=== PATIENT | female | born 1945 | race American Indian/Alaskan Native ===

== ENCOUNTER 2022-10-31 18:55 | Inpatient (IN) ==
[2022-10-31] MEDS ORDERED: 0.9 % SODIUM CHLORIDE 1,000 ML IV ONE ×2 (19:14→19:40)
[2022-10-31] MEDS ORDERED: ONDANSETRON 4 MG/2 ML VIAL IV ONE (19:14)
[2022-10-31 19:23] LABS: POC Calcium, Ionized 1.16 (1.16-1.32); POC Potassium 4.3 (3.3-5.1)
--- NOTE | 2022-10-31 20:04 | Emergency Department Note ---
Nausea/Vomiting/Diarrhea HPI General Chief complaint: Nausea/Vomiting/Diarrhea Stated complaint: N/V several days Time Seen by Provider: 10/31/22 19:09 Source: patient Mode of arrival: ambulatory Limitations: no limitations History of Present Illness HPI Narrative: Narrative: Patient presents to the ED with complaints of nausea vomiting diarrhea x7 days. She states that nausea and vomiting for total 7 days and that the diarrhea started about 2 days ago. Patient states that she cannot keep anything down. She also states that her stools look very dark and she thinks that she is bleeding. She does take Eliquis. She does have a history of cancer and is currently being treated for it. She reports she feels very weak. She denies hematemesis, bright red blood per rectum, abdominal pain, abdominal trauma, cardiac chest pain, heart palpitation, shortness of breath. Patient denies any other alleviating or aggravating factors. Related Data Home Medications Medication Instructions Recorded Confirmed cyanocobalamin (vitamin B-12) 1,000 mcg PO QDAY 12/27/17 11/01/22 1,000 mcg tablet apixaban 5 mg tablet (Eliquis) 5 mg PO BID 04/23/22 11/01/22 ascorbic acid (vitamin C) 500 mg 500 mg PO QDAY 04/23/22 11/01/22 tablet chlorthalidone 25 mg tablet 25 mg PO QDAY 04/23/22 11/01/22 levothyroxine 125 mcg tablet 125 mcg PO QDAY 07/24/22 11/01/22 lenvatinib 12 mg/day (4 mg x 3) See Rx Instructions .Route .COMPLEX 10/31/22 11/01/22 capsule (Lenvima) prochlorperazine maleate 10 mg 10 mg PO Q6 10/31/22 11/01/22 tablet Previous Rx's Medication Instructions Recorded lisinopril 5 mg tablet 5 mg PO QDAY HTN #30 tabs 04/23/22 Allergies Allergy/AdvReac Type Severity Reaction Status Date / Time No Known Drug Allergies Allergy Verified 07/24/22 13:03 Review of Systems ROS ROS Narrative: Narrative: All systems ED: reviewed and negative except as stated. PFSH Narrative Patient History Narrative: Narrative: Medical/Surgical/Family History All Active Problems (Updated 11/01/22 @ 05:38 by Devin Salazar DO) Periumbilical hernia (Acute) Acute renal failure superimposed on stage 3a chronic kidney disease (Acute) Hypertensive disorder (Chronic) Malignant tumor of thyroid gland (Chronic) Disorder of skeletal system (Chronic) Smoker (Chronic) Ventral hernia (Chronic) Vitamin B12 deficiency (non anemic) (Chronic) Secondary malignant neoplasm of lung (Chronic) Hypercalcemia (Chronic) Upper respiratory infection (Chronic) Diverticulitis (Chronic) Osteopenia (Chronic) Increased frequency of urination (Chronic) Knee pain (Chronic) Gastroenteritis (Chronic) Microscopic hematuria (Chronic) Snoring (Chronic) Bursitis of right hip (Chronic) Colon polyp (Chronic) Lung nodule (Chronic) Chronic kidney disease, stage 3 (Chronic) Chronic kidney disease (CKD) stage G3a/A1, moderately decreased glomerular filtration rate (GFR) between 45-59 mL/min/1.73 square meter and albuminuria creatinine ratio less than 30 mg/g (Acute) A-fib (Acute) Low vitamin D level (Acute) FABIÁN (acute kidney injury) (Acute) Acute dehydration (Acute) Nausea vomiting and diarrhea (Acute) Medical History Bursitis of right hip Chronic kidney disease, stage 3 Colon polyp Disorder of skeletal system Diverticulitis Gastroenteritis Hypercalcemia Hypertensive disorder Will probably require 3 drugs for control, no evidence of secondary causes of hypertension Increased frequency of urination Knee pain Lung nodule Malignant tumor of thyroid gland Microscopic hematuria Osteopenia Secondary malignant neoplasm of lung Smoker Snoring Upper respiratory infection Ventral hernia Vitamin B12 deficiency (non anemic) Surgical History History of carpal tunnel release (12/12/99) History of colectomy (10/08/11) History of colonoscopy (04/23/16) History of hernia repair History of hysterectomy (12/11/94) History of sigmoidoscopy (04/22/16) History of thyroidectomy Family History Mother Heart disease Myocardial infarction Father Kidney disease Renal failure syndrome Sister Diabetes Brother Cancer Arthritis Other Family history of breast cancer Social History Smoking Status: Former smoker Alcohol Intake Frequency: does not drink Exam Narrative Narrative: Narrative: General Limitations: no limitations General appearance: Present other (Chronically ill-appearing); Absent in distress Eye Eye: Present PERRL and EOMI ENT ENT: Present normal oropharynx and mucous membranes dry Neck Neck: Present normal inspection; Absent meningismus Chest Chest: Present normal inspection; Absent tenderness Respiratory Respiratory: Present normal lung sounds bilaterally; Absent respiratory distress Cardiovascular Cardiovascular: Present tachycardia and irregular rhythm Adbominal Abdominal: Present soft and normal bowel sounds; Absent tenderness Rectal Rectal: Present heme (+) stool Extremities Extremities: Present normal capillary refill Back Back: Absent CVA tenderness (R) or CVA tenderness (L) Neurological Neurological: Present alert and oriented X3 Psychiatric Psychiatric: Present normal affect and normal mood Skin Skin: Present warm (WNL) and intact Course Course Course Narrative: Patient was evaluated for generalized weakness. When patient arrived she was hypotensive with systolic blood pressure less than 90. Labs were obtained and showed normal white cell count with no leukocytosis. Patient's pH was low and she was slightly acidotic and her lactic acid was greater than 6. Patient compromise renal function with a elevated BUN and a creatinine of 8. Her last creatinine was 1.0 back in July of this year. Patient was aggressively hydrated with IV fluids. She was given IV Zofran for her nausea and vomiting. After treatment patient did not vomit here in the ED. she did provide us a stool sample which did test positive for blood. The stool was dark. There was concern that patient could probably have a GI bleed so she was given some IV Protonix. Her stool was negative for C. difficile. Lab work showed that patient's hemoglobin was within normal limits and was actually better than her last hemoglobin level that was checked a few months ago. When patient arrived she was the initially tachycardic and EKG showed A-fib which patient is known to have. After IV fluids her heart rate improved. Her blood pressure also improved after IV hydration with systolic blood pressure greater than 100. After patient's fluids were administered we did repeat lactic acid level which showed improvement. Her renal function also improved as her creatinine came down to 6.9. Case was discussed with convalescent sitter who states he is willing to consult on the patient if she was admitted to the hospitalist service as he thinks that we should see how she responds to IV fluid hydration. He did note that her potassium level is within normal limits so she is not in the immediate need of dialysis at this time. He did request that a renal ultrasound be obtained which has been ordered. Case discussed with hospitalist who has agreed to admit pt. Reevaluation(s) Reevaluation #1: pt remains stable. no new complaints at this time Time: 20:19 Consultations Consultation #1: Case discussed with convalescent sitter, Dr. Lorenz, who states is reasonable to see if we can admit to the hospitalist service and try to resuscitate patient with fl uids. He requests renal ultrasound. Time: 21:46 Consultation #2: Case discussed with hospitalist, Dr. Small, who states these agreeable to admit the patient if surgery it would be willing to perform a EGD/colonoscopy if patient's condition warranted. Time: 22:10 Consultation #3: Case discussed with general surgeon, Dr. Shane, who states that he would be willing to scope the patient if hemoglobin levels change. Time: 22:20 Vital Signs Vital signs: Vital Signs Temperature 96.2 F L 10/31/22 19:01 Pulse Rate 122 H 10/31/22 19:01 Respiratory Rate 18 10/31/22 19:01 Blood Pressure 72/58 10/31/22 19:01 Pulse Oximetry (%) 97 10/31/22 19:01 Oxygen Delivery Method Room Air 10/31/22 19:01 Temperature 96.2 F L 10/31/22 19:01 Pulse Rate 96 H 11/01/22 01:35 Respiratory Rate 20 11/01/22 01:35 Blood Pressure 106/62 11/01/22 01:35 Pulse Oximetry (%) 97 11/01/22 01:43 Oxygen Delivery Method Nasal Cannula 11/01/22 01:43 Oxygen Flow Rate (L/min) 2 11/01/22 01:[address] [facility] MDM Narrative Medical decision making narrative: Narrative: Differential Diagnosis Differential Diagnosis: GI bleed, sepsis, dehydration Medical Records Medical records reviewed: Yes I reviewed the patient's medical records. Lab Data Lab results reviewed: Yes I reviewed the patient's lab results. 10/31/22 19:26 10/31/22 22:43 Labs: Lab Results 10/31/22 10/31/22 10/31/22 Range/Units 19:17 19:26 19:26 WBC 8.7 (4.5-11.0) K/mcL RBC 7.02 H (3.59-5.38) M/mcL Hgb 13.9 (11.2-15.7) g/dL Hct 51.1 H (34.1-44.9) % POC Hct 52.0 H (36-48) MCV 72.8 L (80.0-100.0) fL MCH 19.8 L (26.0-34.0) pg MCHC 27.2 L (31.0-36.0) g/dL RDW 23.9 H (11.5-14.5) % Plt Count 237 (140-440) K/mcL MPV ---- (8.8-12.5) fL Immature Gran % (Auto) 0.2 (0.0-0.5) % Neut % (Auto) 72.7 (38.0-78.0) % Lymph % (Auto) 11.6 L (15.5-49.0) % [place] % (Auto) 15.2 H (1.0-12.0) % Eos % (Auto) 0 (0.0-7.0) % Baso % (Auto) 0.3 (0.0-2.0) % Lymph # (Auto) 1.01 L (1.50-4.80) K/mcL [place] # (Auto) 1.32 H (0.10-0.90) K/mcL Eos # (Auto) 0 (0.00-0.70) K/mcL Baso # (Auto) 0.03 (0.00-0.30) K/mcL Immature Gran # 0.02 (0.00-0.05) K/mcl Absolute Neutrophils 6.33 (1.80-8.00) K/mcL POC VBG pH (7.32-7.42) POC VBG pCO2 at Temp (41-51) POC VBG pO2 (25-40) POC VBG HCO3 (24-28) POC VBG Total CO2 (25-29) POC Venous O2 Sat (40-70) POC VBG Base Excess (-2-2) VBG Lactic Acid (0.5-2) POC Sodium 139 (133-145) Sodium (133-145) mmol/L POC Potassium 4.3 (3.3-5.1) Potassium (3.3-5.1) mmol/L POC Chloride 102 (96-108) Chloride (96-108) mmol/L Carbon Dioxide (22-30) mmol/L POC Total CO2 19.0 L (22-30) Anion Gap (8.0-16.0) POC BUN 65 H (6-20) BUN (8-23) mg/dL Creatinine (0.6-1.1) mg/dL POC Creatinine 8.0 H* (0.6-1.2) GFR Calculation Glucose (70-105) mg/dL POC Glucose 148 H (70-105) Calcium (8.6-10.4) mg/dL POC WB Ioniz Calcium 1.16 (1.16-1.32) Phosphorus (2.5-4.5) mg/dL Total Bilirubin 1.0 (0.1-1.0) mg/dL Direct Bilirubin 0.3 H (<0.3) mg/dL AST 16 (<32) U/L ALT 13 (<40) U/L Alkaline Phosphatase 91 (39-117) U/L Total Protein 7.9 (5.9-8.4) gm/dL Albumin 4.4 (3.2-5.2) gm/dL Globulin 3.5 (2.2-3.7) gm/dL Amylase < 3 L (28-100) U/L Lipase < 3 L (7-60) U/L 10/31/22 10/31/22 10/31/22 Range/Units 19:48 21:33 21:37 WBC (4.5-11.0) K/mcL RBC (3.59-5.38) M/mcL Hgb (11.2-15.7) g/dL Hct (34.1-44.9) % POC Hct 36.0 (36-48) MCV (80.0-100.0) fL MCH (26.0-34.0) pg MCHC (31.0-36.0) g/dL RDW (11.5-14.5) % Plt Count (140-440) K/mcL MPV (8.8-12.5) fL Immature Gran % (Auto) (0.0-0.5) % Neut % (Auto) (38.0-78.0) % Lymph % (Auto) (15.5-49.0) % [place] % (Auto) (1.0-12.0) % Eos % (Auto) (0.0-7.0) % Baso % (Auto) (0.0-2.0) % Lymph # (Auto) (1.50-4.80) K/mcL [place] # (Auto) (0.10-0.90) K/mcL Eos # (Auto) (0.00-0.70) K/mcL Baso # (Auto) (0.00-0.30) K/mcL Immature Gran # (0.00-0.05) K/mcl Absolute Neutrophils (1.80-8.00) K/mcL POC VBG pH 7.30 L 7.24 L (7.32-7.42) POC VBG pCO2 at Temp 38.0 L 49.9 (41-51) POC VBG pO2 31 25 (25-40) POC VBG HCO3 18.6 L 21.4 L (24-28) POC VBG Total CO2 20.0 L 23.0 L (25-29) POC Venous O2 Sat 53.0 34.0 L (40-70) POC VBG Base Excess -8.0 L -6.0 L (-2-2) VBG Lactic Acid 6.2 H* 2.2 H (0.5-2) POC Sodium 142 (133-145) Sodium (133-145) mmol/L POC Potassium 4.2 (3.3-5.1) Potassium (3.3-5.1) mmol/L POC Chloride 108 (96-108) Chloride (96-108) mmol/L Carbon Dioxide (22-30) mmol/L POC Total CO2 21.0 L (22-30) Anion Gap (8.0-16.0) POC BUN 63 H (6-20) BUN (8-23) mg/dL Creatinine (0.6-1.1) mg/dL POC Creatinine 6.9 H* (0.6-1.2) GFR Calculation Glucose (70-105) mg/dL POC Glucose 66 L (70-105) Calcium (8.6-10.4) mg/dL POC WB Ioniz Calcium 1.05 L (1.16-1.32) Phosphorus (2.5-4.5) mg/dL Total Bilirubin (0.1-1.0) mg/dL Direct Bilirubin (<0.3) mg/dL AST (<32) U/L ALT (<40) U/L Alkaline Phosphatase (39-117) U/L Total Protein (5.9-8.4) gm/dL Albumin (3.2-5.2) gm/dL Globulin (2.2-3.7) gm/dL Amylase (28-100) U/L Lipase (7-60) U/L 10/31/22 Range/Units 22:43 WBC (4.5-11.0) K/mcL RBC (3.59-5.38) M/mcL Hgb (11.2-15.7) g/dL Hct (34.1-44.9) % POC Hct (36-48) MCV (80.0-100.0) fL MCH (26.0-34.0) pg MCHC (31.0-36.0) g/dL RDW (11.5-14.5) % Plt Count (140-440) K/mcL MPV (8.8-12.5) fL Immature Gran % (Auto) (0.0-0.5) % Neut % (Auto) (38.0-78.0) % Lymph % (Auto) (15.5-49.0) % [place] % (Auto) (1.0-12.0) % Eos % (Auto) (0.0-7.0) % Baso % (Auto) (0.0-2.0) % Lymph # (Auto) (1.50-4.80) K/mcL [place] # (Auto) (0.10-0.90) K/mcL Eos # (Auto) (0.00-0.70) K/mcL Baso # (Auto) (0.00-0.30) K/mcL Immature Gran # (0.00-0.05) K/mcl Absolute Neutrophils (1.80-8.00) K/mcL POC VBG pH (7.32-7.42) POC VBG pCO2 at Temp (41-51) POC VBG pO2 (25-40) POC VBG HCO3 (24-28) POC VBG Total CO2 (25-29) POC Venous O2 Sat (40-70) POC VBG Base Excess (-2-2) VBG Lactic Acid (0.5-2) POC Sodium (133-145) Sodium 143 (133-145) mmol/L POC Potassium (3.3-5.1) Potassium 4.3 (3.3-5.1) mmol/L POC Chloride (96-108) Chloride 104 (96-108) mmol/L Carbon Dioxide 24 (22-30) mmol/L POC Total CO2 (22-30) Anion Gap 15.0 (8.0-16.0) POC BUN (6-20) BUN 64 H (8-23) mg/dL Creatinine 5.1 H* (0.6-1.1) mg/dL POC Creatinine (0.6-1.2) GFR Calculation 7 Glucose 91 (70-105) mg/dL POC Glucose (70-105) Calcium 8.4 L (8.6-10.4) mg/dL POC WB Ioniz Calcium (1.16-1.32) Phosphorus 7.5 H* (2.5-4.5) mg/dL Total Bilirubin (0.1-1.0) mg/dL Direct Bilirubin (<0.3) mg/dL AST (<32) U/L ALT (<40) U/L Alkaline Phosphatase (39-117) U/L Total Protein (5.9-8.4) gm/dL Albumin 3.4 (3.2-5.2) gm/dL Globulin (2.2-3.7) gm/dL Amylase (28-100) U/L Lipase (7-60) U/L Radiology Data Radiology results reviewed: Yes I reviewed the patient's radiology results. Radiology results narrative: Renal ultrasound obtained bilaterally with unremarkable findings CT abdomen pelvis obtained with image reviewed myself which revealed a periumbilical hernia with no signs of a small bowel obstruction or incarcerated bowel EKG Data EKG #1: EKG attestation: Yes I reviewed and interpreted this EKG. Rate: tachycardia Rhythm: A.Fib [place]/QRS: normal Heart block present: None ST segment elevation in: None ST segment depression in: None QTc: normal QRS morphology: Present normal Interpretation: no acute changes Core Measures AMI Core Measures Followed: Yes Discharge Plan Patient/Caregiver Discharge Instructions Pt seen by CERTIFIED COURT/MEDICAL INTERPRETER/PA only: No Clinical Impression: FABIÁN (acute kidney injury), Acute dehydration, Nausea vomiting and diarrhea, Periumbilical hernia Patient Disposition: Xfer As Outpt/Obs ([facility]) Condition: Fair Discharge Date/Time: 11/01/22 01:43
[2022-10-31 20:06] LABS: Basophils # (Auto) 0.03 K/mcL (0.00-0.30); Basophils % (Auto) 0.3 % (0.0-2.0); Eosinophils # (Auto) 0 K/mcL (0.00-0.70); Eosinophils % (Auto) 0 % (0.0-7.0); Hematocrit 51.1 % (34.1-44.9); Hemoglobin 13.9 g/dL (11.2-15.7); Lymphocytes # (Auto) 1.01 K/mcL (1.50-4.80); Lymphocytes % (Auto) 11.6 % (15.5-49.0); Mean Cell Volume 72.8 fL (80.0-100.0); Mean Corpuscular HGB Conc 27.2 g/dL (31.0-36.0); Monocytes # (Auto) 1.32 K/mcL (0.10-0.90); Monocytes % (Auto) 15.2 % (1.0-12.0); Neutrophils % (Auto) 72.7 % (38.0-78.0); Platelet Count 237 K/mcL (140-440); RBC 7.02 M/mcL (3.59-5.38); Red Cell Distribution Width 23.9 % (11.5-14.5); WBC 8.7 K/mcL (4.5-11.0)
[2022-10-31] MEDS ORDERED: PANTOPRAZOLE 40 MG VIAL IV ONE (20:17)
[2022-10-31 20:26] LABS: Amylase < 3 U/L (28-100)
[2022-10-31 20:50] LABS: ALT/SGPT 13 U/L (<40); AST/SGOT 16 U/L (<32); Albumin 4.4 gm/dL (3.2-5.2); Alkaline Phosphatase 91 U/L (39-117); Bilirubin,Direct 0.3 mg/dL (<0.3); Globulin 3.5 gm/dL (2.2-3.7)
[2022-10-31] MEDS ORDERED: 0.9 % SODIUM CHLORIDE 250 ML IV ONE (21:10)
[2022-10-31 21:40] LABS: POC Calcium, Ionized 1.05 (1.16-1.32); POC Creatinine 6.9 (0.6-1.2); POC Potassium 4.2 (3.3-5.1)
[2022-10-31] MEDS ORDERED: SODIUM BICARBONATE 50 MEQ/50 ML VIAL IV ONE (21:45)
[2022-10-31] MEDS ORDERED: 0.9 % SODIUM CHLORIDE 1,000 ML IV SCH ×2 (22:00→23:45)
--- NOTE | 2022-10-31 22:27 | Nephrology Consult Note ---
HPI Date of Consult Consult Date: 10/31/22 Requesting physician: Jhon Caldwell Primary Care Provider: RYLAN Jackson Consult Narrative Chief complaint: Nausea Reason for consult: Acute kidney injury History of present illness: Elana Monte is a 77-year-old female with hypertension, presented to ED for nausea and vomiting for 7 days and diarrhea for 2 days. In ED, her POC creatinine was 8.0. She was given 2 L IVF, but had no urine output. She was recently diagnosed with thyroid cancer and prescribed lenvatinib. Nephrology consultation was requested for acute kidney injury. cc:: CC: Constitutional Constitutional: Present fatigue and weakness EENT Nose, mouth and throat: Absent nasal congestion or sore throat Cardiovascular Cardiovascular: Absent chest pain or leg edema Respiratory Respiratory: Absent dyspnea or wheezing Gastrointestinal Gastrointestinal: Present diarrhea, nausea and vomiting Genitourinary Genitourinary: Absent dysuria or hematuria Musculoskeletal Musculoskeletal: Absent joint swelling Integumentary Integumentary: Absent rash or wounds Neurological Neurological: Present weakness; Absent confusion Psychiatric Psychiatric: Absent anxiety or panic attacks Hematologic/Lymphatic Hematologic/Lymphatic: Present easy bruising Allergic/Immunologic Allergic/Immunologic: Absent tongue swelling or uticaria PFSH PFSH All Active Problems (Updated 10/31/22 @ 22:26 by Minna Thompson MD) Acute renal failure superimposed on stage 3a chronic kidney disease (Acute) Hypertensive disorder (Chronic) Malignant tumor of thyroid gland (Chronic) Disorder of skeletal system (Chronic) Smoker (Chronic) Ventral hernia (Chronic) Vitamin B12 deficiency (non anemic) (Chronic) Secondary malignant neoplasm of lung (Chronic) Hypercalcemia (Chronic) Upper respiratory infection (Chronic) Diverticulitis (Chronic) Osteopenia (Chronic) Increased frequency of urination (Chronic) Knee pain (Chronic) Gastroenteritis (Chronic) Microscopic hematuria (Chronic) Snoring (Chronic) Bursitis of right hip (Chronic) Colon polyp (Chronic) Lung nodule (Chronic) Chronic kidney disease, stage 3 (Chronic) Chronic kidney disease (CKD) stage G3a/A1, moderately decreased glomerular f iltration rate (GFR) between 45-59 mL/min/1.73 square meter and albuminuria creatinine ratio less than 30 mg/g (Acute) A-fib (Acute) Low vitamin D level (Acute) FABIÁN (acute kidney injury) (Acute) Acute dehydration (Acute) Nausea vomiting and diarrhea (Acute) Medical History Bursitis of right hip Chronic kidney disease, stage 3 Colon polyp Disorder of skeletal system Diverticulitis Gastroenteritis Hypercalcemia Hypertensive disorder Will probably require 3 drugs for control, no evidence of secondary causes of hypertension Increased frequency of urination Knee pain Lung nodule Malignant tumor of thyroid gland Microscopic hematuria Osteopenia Secondary malignant neoplasm of lung Smoker Snoring Upper respiratory infection Ventral hernia Vitamin B12 deficiency (non anemic) Surgical History History of carpal tunnel release (12/12/99) History of colectomy (10/08/11) History of colonoscopy (04/23/16) History of hernia repair History of hysterectomy (12/11/94) History of sigmoidoscopy (04/22/16) History of thyroidectomy Family History Mother Heart disease Myocardial infarction Father Kidney disease Renal failure syndrome Sister Diabetes Brother Cancer Arthritis Other Family history of breast cancer Social History (Updated 04/13/22 @ 11:03 by Joan Christianson) marital status: single smoking status: Former smoker alcohol intake frequency: does not drink MEDS/ALLERGIES Home Medications and Allergies Home Medications Medication Instructions Recorded Confirmed Type cyanocobalamin (vitamin B-12) 1,000 mcg PO QDAY 12/27/17 10/31/22 History 1,000 mcg tablet apixaban 5 mg tablet (Eliquis) 5 mg PO BID 04/23/22 10/31/22 History ascorbic acid (vitamin C) 500 mg 500 mg PO QDAY 04/23/22 10/31/22 History tablet chlorthalidone 25 mg tablet 25 mg PO QDAY 04/23/22 10/31/22 History lisinopril 5 mg tablet 5 mg PO QDAY HTN #30 tabs 04/23/22 10/31/22 Rx levothyroxine 125 mcg tablet 125 mcg PO QDAY 07/24/22 10/31/22 History lenvatinib 12 mg/day (4 mg x 3) See Rx Instructions .Route .COMPLEX 10/31/22 10/31/22 History capsule (Lenvima) prochlorperazine maleate 10 mg 10 mg PO Q6 10/31/22 10/31/22 History tablet Allergies Allergy/AdvReac Type Severity Reaction Status Date / Time No Known Drug Allergies Allergy Verified 07/24/22 13:03 Physical Examination Vital Signs Vital signs: Temp Pulse Resp BP Pulse Ox O2 Del Method O2 Flow Rate 96.2 F L 93 H 18 112/54 99 Nasal Cannula 2 10/31/22 19:01 10/31/22 21:32 10/31/22 22:01 10/31/22 22:01 10/31/22 21:32 10/31/22 22:01 10/31/22 22:01 General Appearance General appearance: chronically ill and fatigue EENT EENT: mucous membranes dry Neck Neck: no JVD Respiratory Respiratory: clear Cardiovascular Cardiology: no edema Gastrointestinal Gastrointestinal: no tenderness Integumentary Integumentary: warm and dry Neurologic Neurologic: no focal deficit and alert and oriented x3 Psychiatric Psychiatric: mood/affect appropriate and cooperative Results Lab Results 10/31/22 19:26 10/31/22 22:43 A/P Assessment and plan (1) Acute renal failure superimposed on stage 3a chronic kidney disease: Assessment and plan: Elana Monte is a 77-year-old female with hypertension, presented to ED for nausea and vomiting for 7 days and diarrhea for 2 days. In ED, her POC creatinine was 8.0. She was given 2 L IVF, but had no urine output. She was recently diagnosed with thyroid cancer and prescribed lenvatinib. Nephrology consultation was requested for acute kidney injury. Acute kidney injury, likely acute tubular necrosis associated with dehydration and lenvatinib on chronic kidney disease stage 3a with initial metabolic acidosis, present on arrival. There is no recent history of IV contrast administration or NSAID use. Intravascular volume depletion likely per urine and adequate IV fluid resuscitation started. Work up: Renal US pending. Progress: Serum creatinine increased from 1.0 on 07/18/22 to 8.0 on 10/31/22. Baseline serum creatinine: 1.0 (eGFR 54) on 07/18/22. Urine output: 0 ml reported in the past 24 hours. Metabolic acidosis. No uremic symptoms. Recommendations/Plan: No urgent acute hemodialysis need. Avoid NSAIDs, nephrotoxic medications and IV contrast. Monitor BMP and urine output. Status: Acute Time Spent With Patient Time: Total time spent is greater than 50% in coordination of care (as documented) at patient's floor/unit and/or counseling patient:
[2022-10-31 23:50] LABS: Albumin 3.4 gm/dL (3.2-5.2); Blood Urea Nitrogen 64 mg/dL (8-23); Calcium 8.4 mg/dL (8.6-10.4); Carbon Dioxide 24 mmol/L (22-30); Chloride 104 mmol/L (96-108); Glomerular Filtration Rate 7; Glucose 91 mg/dL (70-105); Phosphorous 7.5 mg/dL (2.5-4.5)
[2022-11-01] MEDS: PANTOPRAZOLE 80 MG in 0.9 % SODIUM CHLORIDE 100 ML IV SCH ×3 (00:11→20:03)
[2022-11-01] MEDS ORDERED: morphine 2 MG/ML VIAL IV PRN (01:21)
[2022-11-01] MEDS ORDERED: NALOXONE HCL 0.4 MG/ML VIAL IV PRN (01:21)
[2022-11-01] MEDS ORDERED: ONDANSETRON 4 MG/2 ML VIAL IV PRN (01:21)
[2022-11-01] MEDS: 0.9 % SODIUM CHLORIDE 1,000 ML IV SCH ×4 (05:36→20:38)
[2022-11-01 06:34] LABS: Basophils # (Auto) 0.02 K/mcL (0.00-0.30); Basophils % (Auto) 0.2 % (0.0-2.0); Eosinophils # (Auto) 0.01 K/mcL (0.00-0.70); Eosinophils % (Auto) 0.1 % (0.0-7.0); Hematocrit 41.8 % (34.1-44.9); Lymphocytes # (Auto) 0.64 K/mcL (1.50-4.80); Lymphocytes % (Auto) 6.7 % (15.5-49.0); Mean Cell Volume 75.3 fL (80.0-100.0); Mean Corpuscular HGB Conc 26.3 g/dL (31.0-36.0); Mean Platelet Volume 10.4 fL (8.8-12.5); Monocytes % (Auto) 16.8 % (1.0-12.0); Platelet Count 161 K/mcL (140-440); RBC 5.55 M/mcL (3.59-5.38); Red Cell Distribution Width 23.2 % (11.5-14.5); WBC 9.5 K/mcL (4.5-11.0)
[2022-11-01 06:37] LABS: ALT/SGPT 9 U/L (<40); AST/SGOT 13 U/L (<32); Albumin/Globulin Ratio 1.2 (1.0-2.3); Alkaline Phosphatase 65 U/L (39-117); Bilirubin,Total 0.6 mg/dL (0.1-1.0); Blood Urea Nitrogen 63 mg/dL (8-23); Calcium 8.1 mg/dL (8.6-10.4); Carbon Dioxide 19 mmol/L (22-30); Chloride 108 mmol/L (96-108); Globulin 2.6 gm/dL (2.2-3.7); Glomerular Filtration Rate 7; Glucose 80 mg/dL (70-105)
--- NOTE | 2022-11-01 07:11 | Nephrology Progress Note ---
SUBJECTIVE Subjective Patient information: Note initiated : 11/01/22 at 7:10 am Patient: Elana Monte a 77 y/o F admitted on 11/01/22 for N/V several days. Chief Complaint: Nausea Pertinent ROS: Nausea Weakness Constitutional Vitals: Vital Signs Temp Pulse Resp BP Pulse Ox O2 Del Method O2 Flow Rate 97.3 F 102 H 21 105/54 98 Nasal Cannula 2 11/01/22 04:01 11/01/22 06:01 11/01/22 06:01 11/01/22 06:01 11/01/22 06:01 11/01/22 06:01 11/01/22 06:01 Period Temp Pulse Resp BP Sys/Lucas Pulse Ox O2 Del Method O2 Flow Rate Last 24 Hr 96.2 F-97.3 F 89-126 16-25 72-126/48-87 90-100 Nasal Cannula- Room Air 2-2 Intake and Output 10/31/22 11/01/22 11/01/22 19:59 03:59 11:59 Intake Total 2658 692 Balance 2658 692 Weight 162 lb 157 lb Intake & Output: Intake & Output 10/31/22 11/01/22 11/01/22 19:59 03:59 11:59 Intake Total 2658 692 Balance 2658 692 Weight 162 lb 157 lb Intake: IV 2658 692 Sodium Chloride 0.9% 1,000 ml @ 2308 692 150 mls/hr IV .[id number] [facility] Rx#: [id number] Sodium Chloride 0.9% 250 ml @ 350 Wide Open IV B[facility] Rx#: [id number] Other: Stool Color Black Stool Consistency Liquid Watery Loose Head Head exam: Present atraumatic and normal inspection Eye Eye exam: Present normal appearance ENT ENT exam: Present mucous membranes moist, normal exam and normal external ear exam Neck Neck exam: Present normal inspection Respiratory Respiratory exam: Present normal respiratory exam Cardiovascular Cardiovascular exam: Present normal rate and rhythm GI/Abdominal GI/Abdominal exam: Present normal bowel sounds Back Exam Back exam: Present normal inspection Neurological Exam Neurological exam: Present alert and oriented X3 Skin Skin exam: Present intact and warm A/P Assessment and plan (1) Acute renal failure superimposed on stage 3a chronic kidney disease: Assessment and plan: Elana Monte is a 77-year-old female with hypertension, presented to ED for nausea and vomiting for 7 days and diarrhea for 2 days. In ED, her POC creatinine was 8.0. She was given 2 L IVF, but had no urine output. She was recently diagnosed with thyroid cancer and prescribed lenvatinib. Nephrology consultation was requested for acute kidney injury. Acute kidney injury, likely acute tubular necrosis associated with dehydration and lenvatinib on chronic kidney disease stage 3a with initial metabolic acidosis, present on arrival. There is no recent history of IV contrast administration or NSAID use. Intravascular volume depletion likely per urine and adequate IV fluid resuscitation started. Work up: Renal US pending. Progress: Serum creatinine decreased from 8.0 on 10/31/22 to 5.2 on 11/01/22, but no urine output indicating dilution so far. Baseline serum creatinine: 1.0 (eGFR 54) on 07/18/22. Urine output: 0 ml reported in the past 24 hours. Metabolic acidosis. No uremic symptoms. Recommendations/Plan: No urgent acute hemodialysis need. Avoid NSAIDs, nephrotoxic medications and IV contrast. Monitor BMP and urine output. Status: Acute Time Spent With Patient Time: Total time spent is greater than 50% in coordination of care (as documented) at patient's floor/unit and/or counseling patient:
--- NOTE | 2022-11-01 07:48 | XRay Report ---
HISTORY: Tachycardia, lung and throat cancer, smoker FINDINGS: There is a miliary pattern of ill-defined smudgy nodular densities throughout both lungs, predominantly involving the lung bases. This has improved significantly since prior x-ray done on 06/27/22. No consolidating infiltrate has developed. There is no dominant mass. No pleural effusion is present. No adenopathy is detected. The heart size is normal. There is no congestive heart failure. IMPRESSION: Widespread pulmonary metastasis which have improved since 06/27/22 Interpreted and Authenticated by: Farzad Manzano 11/01/22
--- NOTE | 2022-11-01 07:51 | Ultrasound Report ---
History: Acute kidney injury FINDINGS: The right kidney measures 3.9 x 5.1 x 8.9 cm and the left measures 4.2 x 6.1 x 11.5 cm. Subtle increased echogenicity is present in the renal parenchyma bilaterally suggesting chronic medical renal disease. There are two cysts in the right kidney. The largest is in the upper pole and measures 4.3 x 4.5 x 7.3 cm. Laterally in the middle third there is a 7 x 8 x 11 mm cyst. Laterally in the upper third of the left kidney there is a 1.1 x 1.1 x 1.5 cm cyst. No solid mass is present in either kidney. There is no kidney stone or hydronephrosis. Doppler showed no flow of urine through either ureter into the bladder. The bladder is nearly empty and contained only 17 cc of urine. IMPRESSION: Markedly diminished urine output consistent with acute kidney injury. Renal cysts. No evidence of urinary tract obstruction Interpreted and Authenticated by: Farzad Manzano 11/01/22
--- NOTE | 2022-11-01 08:04 | Cat Scan Report ---
History: Acute kidney injury, melena, thyroid cancer TECHNIQUE: The abdomen was imaged without contrast in an axial plane at 2.5 mm intervals from above the diaphragm through the symphysis pubis. Sagittal and coronal reformats were created. The radiation exposure was limited using dose reduction technology. FINDINGS: There is a miliary pattern of numerous pulmonary metastasis throughout both lung bases. The largest measures 8 mm. These have improved significantly in both size and number compared with prior CT on 12/05/17 and chest x-ray on 06/27/22. No pleural effusion is present. The heart size is normal. Evaluation of the abdominal organs without contrast is somewhat limited. The liver and spleen are normal in size and homogeneous. The gallbladder has been removed. The bile ducts are nondilated. No abnormalities detected in the pancreas. The adrenals are normal symmetric. There is a large exophytic cyst posteriorly in the upper pole the right kidney. This was confirmed on the preceding ultrasound. No solid mass is present in either kidney. There is no kidney stone or hydronephrosis. Ureters and urinary bladder decompressed. Moderate atherosclerotic disease is present in the aorta and iliac arteries. Aorta is normal in caliber. There is mild atherosclerotic disease in the renal arteries. This is not causing renal artery stenosis. Patient has a wide neck ventral hernia in the upper pelvis containing segments of both large and small bowel. Postsurgical changes following right hemicolectomy. There are also rows of anastomotic sutures in the small bowel in the midabdomen and in the mid sigmoid colon. There is a segment of dilated small bowel within the ventral hernia which measures 5.8 cm in diameter. It contains an air-fluid level. This transitions to normal caliber proximally and distally, with no focal obstructing lesion seen. This may be postsurgical deformity of the bowel. No abdominal mass is detected. There is no ascites. The etiology of the melena was not identified. There are scattered diverticula in the descending colon but there is no acute diverticulitis. There is a lytic lesion medially in the right iliac bone measuring 2.7 cm. Has a well-defined border but there is no surrounding sclerosis. No other lytic or blastic lesion are identified. 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 There is severe spinal canal stenosis at L3-4 and L4-5. IMPRESSION: Pulmonary metastasis which have improved. No evidence of abdominal metastasis. Postsurgical changes following prior resection of segments of both large and small intestine. Etiology of melanoma is not identified. Lytic lesion in the right iliac bone Spinal canal stenosis at L3-4 and L4-5 Interpreted and Authenticated by: Farzad Manzano 11/01/22
--- NOTE | 2022-11-01 08:26 | Internal Med History&Physical ---
HPI History of Present Illness Patient information: Note initiated : 11/01/22 at 8:13 am Service Date, if different from initiated Date: [] Patient: Elana Monte a 77 y/o F admitted on 11/01/22 for N/V several days. Chief Complaint: [] History of present illness: Ms. Monte is a 77 year old F Presents to the hospital with nausea vomiting for about a week. 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 Patient complains of feeling weak. Denies hematemesis. She gets nausea vomiting from the cancer medication and when she gets nausea vomit she gets diarrhea. She says her nausea vomiting is been going on for about a week and she has 5-10 episodes per day. She also has diarrhea with the nausea vomiting about the same number of episodes. She did have some dizziness lightheadedness earlier in the week but that resolved. However she has been more weak over the past few days. And she also reports that now her diarrhea became black the day before she presented to the ED, which was a trigger for her to come in and be evaluated. She does have heartburn but that is normal for her and she does not have any increased episodes of it and has no epigastric pain or any abdominal pain. She also reports poor oral intake because she cannot keep anything down. She says Grieser a lot of foods just trigger her nausea and vomiting. Her stool was guaiac positive in the ED. And she was also found to have a creatinine of 8. Case discussed with Dr. Shane for potential endoscopy and for Dr. Thompson nephrology felt the patient could be safely managed here as it is likely secondary to nausea vomiting and should respond to fluids although its likely ATN will take some time. Renal ultrasound was done which was unremarkable for any hydronephrosis or acute pathology. CT abdomen pelvis noncontrast showed pulmonary metastases as noted on no abdominal metastases, no etiology of melena. A lytic lesion noted in the right iliac bone. No acute findings. Hemoglobin was 13 when she arrived however this was definitely hemoconcentrated given her volume loss. Hemoglobin this morning is 11 after several liters of fluid. Also significant as she is got a very low MCV as well as MCH and an elevated RDW concerning for iron deficiency perhaps related to mild chronic GI blood loss. Patient with metabolic acidosis on ABG. She had a lactate of 6.2 initially which improved to 2.2 after IV fluids in the ED. C. difficile in the ED was negative. Review of Systems: Pertinent positives as above Plus mild chronic cough and shortness of breath but no change. Denies headache/fever/chills/chest or abdominal pain/. Remaining 10 point review of system reviewed negative PHYSICAL EXAM General: Alert, Awake, No acute Distress, obese Eyes/N/T: EOMI, no scleral icterus, PERRL, dry MM Head/Neck: neck supple, full ROM, normocephalic atraumatic CV: RRR, No murmurs, normal s1/s2 Pulm: Clear b/l, no wheezing/rhonchi/rales, no respiratory distress Abd: soft, nontender, +BS x4 Ext: no clubbing/cyanosis/edema, nontender Neuro: Alert, CN 2-12 grossly intact, no focal deficits, moves all extremities, , sensations intact b/l upper/lower Psychiatric: Skin: warm/dry, normal color PFSH PFSH All Active Problems (Updated 11/01/22 @ 05:38 by Devin Salazar DO) Periumbilical hernia (Acute) Acute renal failure superimposed on stage 3a chronic kidney disease (Acute) Hypertensive disorder (Chronic) Malignant tumor of thyroid gland (Chronic) Disorder of skeletal system (Chronic) Smoker (Chronic) Ventral hernia (Chronic) Vitamin B12 deficiency (non anemic) (Chronic) Secondary malignant neoplasm of lung (Chronic) Hypercalcemia (Chronic) Upper respiratory infection (Chronic) Diverticulitis (Chronic) Osteopenia (Chronic) Increased frequency of urination (Chronic) Knee pain (Chronic) Gastroenteritis (Chronic) Microscopic hematuria (Chronic) Snoring (Chronic) Bursitis of right hip (Chronic) Colon polyp (Chronic) Lung nodule (Chronic) Chronic kidney disease, stage 3 (Chronic) Chronic kidney disease (CKD) stage G3a/A1, moderately decreased glomerular filtration rate (GFR) between 45-59 mL/min/1.73 square meter and albuminuria creatinine ratio less than 30 mg/g (Acute) A-fib (Acute) Low vitamin D level (Acute) FABIÁN (acute kidney injury) (Acute) Acute dehydration (Acute) Nausea vomiting and diarrhea (Acute) Medical History Bursitis of right hip Chronic kidney disease, stage 3 Colon polyp Disorder of skeletal system Diverticulitis Gastroenteritis Hypercalcemia Hypertensive disorder Will probably require 3 drugs for control, no evidence of secondary causes of hypertension Increased frequency of urination Knee pain Lung nodule Malignant tumor of thyroid gland Microscopic hematuria Osteopenia Secondary malignant neoplasm of lung Smoker Snoring Upper respiratory infection Ventral hernia Vitamin B12 deficiency (non anemic) Surgical History History of carpal tunnel release (12/12/99) History of colectomy (10/08/11) History of colonoscopy (04/23/16) History of hernia repair History of hysterectomy (12/11/94) History of sigmoidoscopy (04/22/16) History of thyroidectomy Family History Mother Heart disease Myocardial infarction Father Kidney disease Renal failure syndrome Sister Diabetes Brother Cancer Arthritis Other Family history of breast cancer Social History (Updated 04/13/22 @ 11:03 by Joan Christianson) marital status: single smoking status: Former smoker alcohol intake frequency: does not drink MEDS/ALLERGIES Home Medications and Allergies Home Medications Medication Instructions Recorded Confirmed Type cyanocobalamin (vitamin B-12) 1,000 mcg PO QDAY 12/27/17 11/01/22 History 1,000 mcg tablet apixaban 5 mg tablet (Eliquis) 5 mg PO BID 04/23/22 11/01/22 History ascorbic acid (vitamin C) 500 mg 500 mg PO QDAY 04/23/22 11/01/22 History tablet chlorthalidone 25 mg tablet 25 mg PO QDAY 04/23/22 11/01/22 History lisinopril 5 mg tablet 5 mg PO QDAY HTN #30 tabs 04/23/22 11/01/22 Rx levothyroxine 125 mcg tablet 125 mcg PO QDAY 07/24/22 11/01/22 History lenvatinib 12 mg/day (4 mg x 3) See Rx Instructions .Route .COMPLEX 10/31/22 11/01/22 History capsule (Lenvima) prochlorperazine maleate 10 mg 10 mg PO Q6 10/31/22 11/01/22 History tablet Allergies Allergy/AdvReac Type Severity Reaction Status Date / Time No Known Drug Allergies Allergy Verified 07/24/22 13:03 EXAM Constitutional Vitals: Temp Pulse Resp BP Pulse Ox O2 Del Method O2 Flow Rate 97.4 F 113 H 23 H 95/71 92 Nasal Cannula 1 11/01/22 08:00 11/01/22 08:02 11/01/22 08:02 11/01/22 08:02 11/01/22 08:02 11/01/22 08:00 11/01/22 08:00 DATA Data Completed and Pending Labs: Labs from last 24 hours 11/01/22 11/01/22 10/31/22 05:25 05:25 22:43 WBC 9.5 RBC 5.55 H Hgb 11.0 L Hct 41.8 POC Hct MCV 75.3 L MCH 19.8 L MCHC 26.3 L RDW 23.2 H Plt Count 161 MPV 10.4 Immature Gran % (Auto) 0.2 Neut % (Auto) 76.0 Lymph % (Auto) 6.7 L Sevier % (Auto) 16.8 H Eos % (Auto) 0.1 Baso % (Auto) 0.2 Lymph # (Auto) 0.64 L Sevier # (Auto) 1.60 H Eos # (Auto) 0.01 Baso # (Auto) 0.02 Immature Gran # 0.02 Absolute Neutrophils 7.21 POC VBG pH POC VBG pCO2 at Temp POC VBG pO2 POC VBG HCO3 POC VBG Total CO2 POC Venous O2 Sat POC VBG Base Excess VBG Lactic Acid POC Sodium Sodium 145 143 POC Potassium Potassium 4.2 4.3 POC Chloride Chloride 108 104 Carbon Dioxide 19 L 24 POC Total CO2 Anion Gap 18.0 H 15.0 POC BUN BUN 63 H 64 H Creatinine 5.2 H* 5.1 H* POC Creatinine GFR Calculation 7 7 Glucose 80 91 POC Glucose Calcium 8.1 L 8.4 L POC WB Ioniz Calcium Phosphorus 7.5 H* Total Bilirubin 0.6 Direct Bilirubin AST 13 ALT 9 Alkaline Phosphatase 65 Total Protein 5.6 L Albumin 3.0 L 3.4 Globulin 2.6 Albumin/Globulin Ratio 1.2 Amylase Lipase 10/31/22 10/31/22 10/31/22 21:37 21:33 19:48 WBC RBC Hgb Hct POC Hct 36.0 MCV MCH MCHC RDW Plt Count MPV Immature Gran % (Auto) Neut % (Auto) Lymph % (Auto) Sevier % (Auto) Eos % (Auto) Baso % (Auto) Lymph # (Auto) Sevier # (Auto) Eos # (Auto) Baso # (Auto) Immature Gran # Absolute Neutrophils POC VBG pH 7.24 L 7.30 L POC VBG pCO2 at Temp 49.9 38.0 L POC VBG pO2 25 31 POC VBG HCO3 21.4 L 18.6 L POC VBG Total CO2 23.0 L 20.0 L POC Venous O2 Sat 34.0 L 53.0 POC VBG Base Excess -6.0 L -8.0 L VBG Lactic Acid 2.2 H 6.2 H* POC Sodium 142 Sodium POC Potassium 4.2 Potassium POC Chloride 108 Chloride Carbon Dioxide POC Total CO2 21.0 L Anion Gap POC BUN 63 H BUN Creatinine POC Creatinine 6.9 H* GFR Calculation Glucose POC Glucose 66 L Calcium POC WB Ioniz Calcium 1.05 L Phosphorus Total Bilirubin Direct Bilirubin AST ALT Alkaline Phosphatase Total Protein Albumin Globulin Albumin/Globulin Ratio Amylase Lipase 10/31/22 10/31/22 10/31/22 19:26 19:26 19:17 WBC 8.7 RBC 7.02 H Hgb 13.9 Hct 51.1 H POC Hct 52.0 H MCV 72.8 L MCH 19.8 L MCHC 27.2 L RDW 23.9 H Plt Count 237 MPV ---- Immature Gran % (Auto) 0.2 Neut % (Auto) 72.7 Lymph % (Auto) 11.6 L Sevier % (Auto) 15.2 H Eos % (Auto) 0 Baso % (Auto) 0.3 Lymph # (Auto) 1.01 L Sevier # (Auto) 1.32 H Eos # (Auto) 0 Baso # (Auto) 0.03 Immature Gran # 0.02 Absolute Neutrophils 6.33 POC VBG pH POC VBG pCO2 at Temp POC VBG pO2 POC VBG HCO3 POC VBG Total CO2 POC Venous O2 Sat POC VBG Base Excess VBG Lactic Acid POC Sodium 139 Sodium POC Potassium 4.3 Potassium POC Chloride 102 Chloride Carbon Dioxide POC Total CO2 19.0 L Anion Gap POC BUN 65 H BUN Creatinine POC Creatinine 8.0 H* GFR Calculation Glucose POC Glucose 148 H Calcium POC WB Ioniz Calcium 1.16 Phosphorus Total Bilirubin 1.0 Direct Bilirubin 0.3 H AST 16 ALT 13 Alkaline Phosphatase 91 Total Protein 7.9 Albumin 4.4 Globulin 3.5 Albumin/Globulin Ratio Amylase < 3 L Lipase < 3 L A/P Narrative A/P Narrative: A: *N/V/D: likely from cancer medications -CT a/p unremarkable -c. diff neg *FABIÁN on CK IIIa, likely ATN: 2/2 above *Hypotension: Responded to IVF in the ED but still soft. *GIB: unknown etiology, pt is on eliquis and in setting of renal failure/Uremia -this may simply be reversible with holding of AC while FABIÁN is treated *Acute blood loss anemia & likely GLEN: 2/2 above -hgb 11 *Metabolic/Lactic acidosis: *Permanent A-fib: On diltiazem/eliquis *h/o Thyroid CA w/Lung mets, and to likely right iliac bone: *Hypothyroidism: *HTN: *Obese: bmi 34 *SHANNON: * P: -IVF -Nephrology following -Dr Shane consult for endoscopy -monitor H&H -iron studies -stool studies -protonix gtt -Monitor renal function/UOP/acid-base status -Hold home diltiazem/ACEI/chlorthalidone for hypotension and FABIÁN -prn IV lopressor -PT/OT -CM for placement needs -ppx: SCDs hold chemical (eliquis) for now for GIB Time Spent With Patient Time: Total time spent is greater than 50% in coordination of care (as documented) at patient's floor/unit and/or counseling patient: Initial: Total time with patient: 75 - 90 minutes
[2022-11-01] MEDS ORDERED: METOPROLOL TARTRATE 5 MG/5 ML VIAL IV PRN (08:39)
[2022-11-01] MEDS ORDERED: IPRATROPIUM/ALBUTEROL 3 ML AMPUL.NEB NEB PRN (08:39)
[2022-11-01] MEDS ORDERED: POTASSIUM CHLORIDE 40 MEQ in DEXTROSE 5% IN WATER 500 ML IV PRN (08:39)
[2022-11-01] MEDS ORDERED: ACETAMINOPHEN 325 MG TABLET PO PRN (08:39)
[2022-11-01] MEDS ORDERED: POTASSIUM CHLORIDE 20 MEQ TABLET PO PRN ×2 (08:39)
[2022-11-01] MEDS ORDERED: MAGNESIUM SULFATE 2 GM/50 ML BAG IV PRN (08:39)
[2022-11-01] MEDS: LEVOTHYROXINE 125 MCG TABLET PO SCH (08:51)
[2022-11-01 10:12] LABS: Ferritin 24.3 ng/mL (30.0-400.0)
[2022-11-01] MEDS: IRON POLYSACCHARIDE COMPLEX 150 MG CAPSULE PO SCH (10:41)
[2022-11-01] MEDS: 0.9 % SODIUM CHLORIDE 10 ML SYRINGE IV SCH (13:45)
[2022-11-01] MEDS ORDERED: BENZOCAINE 20% 1 SPRAY EACH TOPICAL PRN (15:03)
[2022-11-01] MEDS ORDERED: PANTOPRAZOLE 40 MG VIAL IV ONE (19:31)
[2022-11-02] MEDS: 0.9 % SODIUM CHLORIDE 1,000 ML IV SCH ×3 (04:15→12:37)
[2022-11-02] MEDS: 0.9 % SODIUM CHLORIDE 10 ML SYRINGE IV SCH ×3 (05:29→14:06)
[2022-11-02 06:31] LABS: Basophils # (Auto) 0.01 K/mcL (0.00-0.30); Basophils % (Auto) 0.2 % (0.0-2.0); Eosinophils # (Auto) 0.07 K/mcL (0.00-0.70); Eosinophils % (Auto) 1.2 % (0.0-7.0); Hematocrit 36.6 % (34.1-44.9); Hemoglobin 9.5 g/dL (11.2-15.7); Lymphocytes # (Auto) 0.56 K/mcL (1.50-4.80); Lymphocytes % (Auto) 9.4 % (15.5-49.0); Mean Cell Volume 76.1 fL (80.0-100.0); Monocytes # (Auto) 0.84 K/mcL (0.10-0.90); Monocytes % (Auto) 14.1 % (1.0-12.0); Neutrophils % (Auto) 74.9 % (38.0-78.0); Platelet Count 155 K/mcL (140-440); RBC 4.81 M/mcL (3.59-5.38); Red Cell Distribution Width 22.8 % (11.5-14.5)
[2022-11-02 06:47] LABS: ALT/SGPT 7 U/L (<40); AST/SGOT 11 U/L (<32); Albumin 2.8 gm/dL (3.2-5.2); Albumin/Globulin Ratio 1.3 (1.0-2.3); Alkaline Phosphatase 57 U/L (39-117); Bilirubin,Direct 0.2 mg/dL (<0.3); Bilirubin,Total 0.5 mg/dL (0.1-1.0); Blood Urea Nitrogen 54 mg/dL (8-23); Calcium 7.4 mg/dL (8.6-10.4); Carbon Dioxide 18 mmol/L (22-30); Chloride 107 mmol/L (96-108); Globulin 2.2 gm/dL (2.2-3.7); Glomerular Filtration Rate 13; Glucose 86 mg/dL (70-105); Lactate Dehydrogenase 127 U/L (135-225); Phosphorous 3.5 mg/dL (2.5-4.5); Triglycerides 149 mg/dL (<150); Uric Acid 12.1 mg/dL (2.5-8.0)
[2022-11-02] MEDS: LEVOTHYROXINE 125 MCG TABLET PO SCH (07:04)
--- NOTE | 2022-11-02 07:37 | Nephrology Progress Note ---
SUBJECTIVE Subjective Patient information: Note initiated : 11/02/22 at 7:34 am Patient: Elana Monte 77 y/o F admitted on 11/01/22 for N/V several days. Chief Complaint: Weakness Pertinent ROS: Weakness Black stools Constitutional Vitals: Vital Signs Temp Pulse Resp BP Pulse Ox O2 Del Method O2 Flow Rate 97.9 F 75 20 103/60 95 Nasal Cannula 1 11/02/22 04:01 11/02/22 06:01 11/02/22 06:01 11/02/22 06:01 11/02/22 06:01 11/02/22 06:01 11/02/22 06:01 Period Temp Pulse Resp BP Sys/Lucas Pulse Ox O2 Del Method O2 Flow Rate Last 24 Hr 97.4 F-99.0 F 75-113 15-28 90-130/57-95 88-97 Nasal Cannula- Room Air 1-1 Intake and Output 11/01/22 11/02/22 11/02/22 19:59 03:59 11:59 Intake Total 2650 100 640 Output Total 200 1250 350 Balance 2450 -1150 290 Weight 165 lb 12.8 oz Intake & Output: Intake & Output 11/01/22 11/02/22 11/02/22 19:59 03:59 11:59 Intake Total 2650 100 640 Output Total 200 1250 350 Balance 2450 -1150 290 Weight 165 lb 12.8 oz Intake: IV 2000 100 640 Sodium Chloride 0.9% 1,000 ml @ 2000 640 84 mls/hr IV .[id number] [facility] Rx#: [id number] Protonix 80 mg In Sodium 100 Chloride 0.9% 100 ml @ 8 MG/HR 10 mls/hr IV Q10H [facility] Rx#: [id number] Oral 650 Output: Void Amount 200 Urine/Stool Mix 500 350 Stool 750 Other: Meal Nourishment/Supplement Percent of Meal Consumed 100% Feeding Ability Independent Urine Appearance Clear Clear Urine Color Dark Yellow Dark Yellow Stool Size Moderate Stool Color Elpidio Colored Brown Doran Green Black Black Stool Consistency Liquid Liquid General appearance: cooperative and no acute distress Head Head exam: Present normal inspection Eye Eye exam: Present normal appearance ENT ENT exam: Present mucous membranes moist Respiratory Respiratory exam: Absent respiratory distress Cardiovascular Cardiovascular exam: Present normal rate and rhythm GI/Abdominal GI/Abdominal exam: Present soft; Absent tenderness Extremities Exam Extremities exam: Absent joint swelling or pedal edema Neurological Exam Neurological exam: Present alert and oriented X3 Psychiatric Psychiatric exam: Present normal affect and normal mood Skin Skin exam: Present warm; Absent rash A/P Assessment and plan (1) Acute renal failure superimposed on stage 3a chronic kidney disease: Assessment and plan: Elana Monte is a 77-year-old female with hypertension, presented to ED for nausea and vomiting for 7 days and diarrhea for 2 days. In ED, her POC creatinine was 8.0. She was given 2 L IVF, but had no urine output. She was recently diagnosed with thyroid cancer and prescribed lenvatinib. Nephrology consultation was requested for acute kidney injury. Acute kidney injury, likely acute tubular necrosis associated with dehydration and lenvatinib on chronic kidney disease stage 3a with initial metabolic acidosis, present on arrival. There is no recent history of IV contrast administration or NSAID use. Intravascular volume depletion likely per urine output and adequate IV fluid resuscitation started. Work up: Renal US on 11/01/22: Markedly diminished urine output consistent with acute kidney injury. Renal cysts. No evidence of urinary tract obstruction. Progress: Serum creatinine decreased from 5.2 to 3.3 in the past 24 hours. Baseline serum creatinine: 1.0 (eGFR 54) on 07/18/22. Urine output: ~350 ml (mixed with stool) reported in the past 24 hours. Metabolic acidosis. No uremic symptoms. Recommendations/Plan: No acute hemodialysis need. Avoid NSAIDs, nephrotoxic medications and IV contrast. Monitor BMP and urine output. Status: Acute Time Spent With Patient Time: Total time spent is greater than 50% in coordination of care (as documented) at patient's floor/unit and/or counseling patient:
[2022-11-02] MEDS: PANTOPRAZOLE 80 MG in 0.9 % SODIUM CHLORIDE 100 ML IV SCH (07:40)
--- NOTE | 2022-11-02 08:30 | Internal Med Progress Note ---
SUBJECTIVE Subjective Patient information: Note initiated : 11/02/22 at 8:20 am Service Date, if different from initiated Date: [] Patient: Elana Monte a 77 y/o F admitted on 11/01/22 for N/V several days. Chief Complaint: [] Interval history: History of present illness: Ms. Monte is a 77 year old F Presents to the hospital with nausea vomiting for about a week. 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 Patient complains of feeling weak. Denies hematemesis. She gets nausea vomiting from the cancer medication and when she gets nausea vomit she gets diarrhea. She says her nausea vomiting is been going on for about a week and she has 5-10 episodes per day. She also has diarrhea with the nausea vomiting about the same number of episodes. She did have some dizziness lightheadedness earlier in the week but that resolved. However she has been more weak over the past few days. And she also reports that now her diarrhea became black the day before she presented to the ED, which was a trigger for her to come in and be evaluated. She does have heartburn but that is normal for her and she does not have any increased episodes of it and has no epigastric pain or any abdominal pain. She also reports poor oral intake because she cannot keep anything down. She says Grieser a lot of foods just trigger her nausea and vomiting. Her stool was guaiac positive in the ED. And she was also found to have a creatinine of 8. Case discussed with Dr. Shane for potential endoscopy and for Dr. Thompson nephrology felt the patient could be safely managed here as it is likely secondary to nausea vomiting and should respond to fluids although its likely ATN will take some time. Renal ultrasound was done which was unremarkable for any hydronephrosis or acute pathology. CT abdomen pelvis noncontrast showed pulmonary metastases as noted on no abdominal metastases, no etiology of melena. A lytic lesion noted in the right iliac bone. No acute findings. Hemoglobin was 13 when she arrived however this was definitely hemoconcentrated given her volume loss. Hemoglobin this morning is 11 after several liters of fluid. Also significant as she is got a very low MCV as well as MCH and an elevated RDW concerning for iron deficiency perhaps related to mild chronic GI blood loss. Patient with metabolic acidosis on ABG. She had a lactate of 6.2 initially which improved to 2.2 after IV fluids in the ED. C. difficile in the ED was negative. 11/02 Patient seems to be feeling little better today. Seems to have more energy. Urine output poor , but creatinine improving. Guaiac positive stools. Hemoglobin 9.5. Metabolic acidosis. Discussed case with Dr. Shane regarding endoscopy for GI bleed. Review of Systems: Pertinent positives as above Plus mild chronic cough and shortness of breath but no change. Denies headache/fever/chills/chest or abdominal pain/. PHYSICAL EXAM General: Alert, Awake, No acute Distress, obese Eyes/N/T: EOMI, no scleral icterus, Head/Neck: neck supple, full ROM, CV: RRR, No murmurs, Pulm: Clear b/l, no wheezing/rhonchi/rales, no respiratory distress Abd: soft, nontender, +BS x4 Ext: no clubbing/cyanosis/edema, nontender Neuro: Alert, no focal deficits, moves all extremities, , sensations intact b/l upper/lower Psychiatric: Skin: warm/dry, normal color Constitutional Vitals: Vital Signs Temp Pulse Resp BP Pulse Ox O2 Del Method O2 Flow Rate 97.4 F 97 H 19 116/57 95 Room Air 1 11/02/22 08:02 11/02/22 08:05 11/02/22 08:05 11/02/22 08:02 11/02/22 08:05 11/02/22 08:02 11/02/22 06:01 Period Temp Pulse Resp BP Sys/Lucas Pulse Ox O2 Del Method O2 Flow Rate Last 24 Hr 97.4 F-99.0 F 75-107 15-28 90-130/57-95 88-97 Nasal Cannula- Room Air 1-1 Intake and Output 11/01/22 11/02/22 11/02/22 19:59 03:59 11:59 Intake Total 2650 100 1069 Output Total 200 1250 475 Balance 2450 -1150 594 Weight 75.206 kg Intake & Output: Intake & Output 11/01/22 11/02/22 11/02/22 19:59 03:59 11:59 Intake Total 2650 100 1069 Output Total 200 1250 475 Balance 2450 -1150 594 Weight 75.206 kg Intake: IV 1999 100 1069 Sodium Chloride 0.9% 1,000 ml @ 2000 969 84 mls/hr IV .[id number] [facility] Rx#: [id number] Protonix 80 mg In Sodium 100 100 Chloride 0.9% 100 ml @ 8 MG/HR 10 mls/hr IV Q10H [facility] Rx#: [id number] Oral 650 Output: Void Amount 200 125 Urine/Stool Mix 500 350 Stool 750 Other: Meal Nourishment/Supplement Percent of Meal Consumed 100% Feeding Ability Independent Urine Appearance Clear Clear Clear Urine Color Dark Yellow Dark Yellow Yellow Stool Size Moderate Large Stool Color Elpidio Colored Green Doran Black Stool Consistency Liquid Liquid Watery # Bowel Movements 1 OBJ DATA Labs 11/02/22 05:45 11/02/22 05:45 Labs: Abnormal Lab Results 11/02/22 11/02/22 11/01/22 05:45 05:45 05:25 RBC Hgb 9.5 L Hct POC Hct MCV 76.1 L MCH 19.8 L MCHC 26.0 L RDW 22.8 H Lymph % (Auto) 9.4 L [place] % (Auto) 14.1 H Lymph # (Auto) 0.56 L [place] # (Auto) POC VBG pH POC VBG pCO2 at Temp POC VBG HCO3 POC VBG Total CO2 POC Venous O2 Sat POC VBG Base Excess VBG Lactic Acid Carbon Dioxide 18 L 19 L POC Total CO2 Anion Gap 18.0 H POC BUN BUN 54 H 63 H Creatinine 3.3 H 5.2 H* POC Creatinine POC Glucose Uric Acid 12.1 H Calcium 7.4 L 8.1 L POC WB Ioniz Calcium Phosphorus Iron Unsat Iron Binding Transferrin % Sat Ferritin Direct Bilirubin Lactate Dehydrogenase 127 L Total Protein 5.0 L 5.6 L Albumin 2.8 L 3.0 L Amylase Lipase 11/01/22 11/01/22 10/31/22 05:25 05:00 22:43 RBC 5.55 H Hgb 11.0 L Hct POC Hct MCV 75.3 L MCH 19.8 L MCHC 26.3 L RDW 23.2 H Lymph % (Auto) 6.7 L [place] % (Auto) 16.8 H Lymph # (Auto) 0.64 L [place] # (Auto) 1.60 H POC VBG pH POC VBG pCO2 at Temp POC VBG HCO3 POC VBG Total CO2 POC Venous O2 Sat POC VBG Base Excess VBG Lactic Acid Carbon Dioxide POC Total CO2 Anion Gap POC BUN BUN 64 H Creatinine 5.1 H* POC Creatinine POC Glucose Uric Acid Calcium 8.4 L POC WB Ioniz Calcium Phosphorus 7.5 H* Iron 18 L Unsat Iron Binding 347 H Transferrin % Sat 5 L Ferritin 24.3 L Direct Bilirubin Lactate Dehydrogenase Total Protein Albumin Amylase Lipase 10/31/22 10/31/22 10/31/22 21:37 21:33 19:48 RBC Hgb Hct POC Hct MCV MCH MCHC RDW Lymph % (Auto) [place] % (Auto) Lymph # (Auto) [place] # (Auto) POC VBG pH 7.24 L 7.30 L POC VBG pCO2 at Temp 38.0 L POC VBG HCO3 21.4 L 18.6 L POC VBG Total CO2 23.0 L 20.0 L POC Venous O2 Sat 34.0 L POC VBG Base Excess -6.0 L -8.0 L VBG Lactic Acid 2.2 H 6.2 H* Carbon Dioxide POC Total CO2 21.0 L Anion Gap POC BUN 63 H BUN Creatinine POC Creatinine 6.9 H* POC Glucose 66 L Uric Acid Calcium POC WB Ioniz Calcium 1.05 L Phosphorus Iron Unsat Iron Binding Transferrin % Sat Ferritin Direct Bilirubin Lactate Dehydrogenase Total Protein Albumin Amylase Lipase 10/31/22 10/31/22 10/31/22 19:26 19:26 19:17 RBC 7.02 H Hgb Hct 51.1 H POC Hct 52.0 H MCV 72.8 L MCH 19.8 L MCHC 27.2 L RDW 23.9 H Lymph % (Auto) 11.6 L [place] % (Auto) 15.2 H Lymph # (Auto) 1.01 L [place] # (Auto) 1.32 H POC VBG pH POC VBG pCO2 at Temp POC VBG HCO3 POC VBG Total CO2 POC Venous O2 Sat POC VBG Base Excess VBG Lactic Acid Carbon Dioxide POC Total CO2 19.0 L Anion Gap POC BUN 65 H BUN Creatinine POC Creatinine 8.0 H* POC Glucose 148 H Uric Acid Calcium POC WB Ioniz Calcium Phosphorus Iron Unsat Iron Binding Transferrin % Sat Ferritin Direct Bilirubin 0.3 H Lactate Dehydrogenase Total Protein Albumin Amylase < 3 L Lipase < 3 L Meds: Medications Acetaminophen (Acetaminophen 325 Mg Tablet) 650 mg PO Q6HP PRN; Protocol PRN Reason: Per Pain Protocol/Fever > 101 Albuterol/Ipratropium (Ipratropium/Albuterol 3 Ml Ampul.Neb) 3 ml NEB Q4HP PRN PRN Reason: Shortness Of Breath Benzocaine (Benzocaine 20% 1 [place] Each) 1 spray TOPICAL ONCE PRN PRN Reason: Analgesia Last Admin: 11/01/22 15:16 Dose: 1 spray Pantoprazole Sodium 80 mg/ (Sodium Chloride) 100 mls @ 10 mls/hr IV Q10H [facility] Last Admin: 11/02/22 07:40 Dose: 8 mg/hr, 10 mls/hr Sodium Chloride (Sodium Chloride 0.9%) 1,000 mls @ 84 mls/hr IV .[id number] [facility] Last Admin: 11/02/22 08:10 Dose: 84 mls/hr Potassium Chloride 40 meq/ (Dextrose) 520 mls @ 130 mls/hr IV UD PRN PRN Reason: Potassium < 3 Magnesium Sulfate (Magnesium Sulfate) 2 gm in 50 mls @ 50 mls/hr IV UD PRN PRN Reason: Magnesium </= 1.6 Levothyroxine Sodium (Levothyroxine 125 Mcg Tablet) 125 mcg PO QAMAC [facility] Last Admin: 11/02/22 07:04 Dose: 125 mcg Metoprolol Tartrate (Metoprolol Tartrate 5 Mg/5 Ml Vial) 5 mg IV Q2HP PRN PRN Reason: Tachyarrhythmias HR>110 Morphine Sulfate (Morphine 2 Mg/Ml Vial) 2 mg IV Q4HP PRN; Protocol PRN Reason: Per Pain Protocol Naloxone HCl (Naloxone Hcl 0.4 Mg/Ml Vial) 0.1 mg IV Q2MIN PRN PRN Reason: Opiate Reversal Ondansetron HCl (Ondansetron 4 Mg/2 Ml Vial) 4 mg IV Q4HP PRN; Protocol PRN Reason: Nausea And Vomiting Polysaccharide Iron Complex (Iron Polysaccharide Complex 150 Mg Capsule) 150 mg PO BID [facility] Last Admin: 11/02/22 00:00 Dose: Not Given Potassium Chloride (Potassium Chloride 20 Meq Tablet) 40 meq PO UD PRN PRN Reason: Potssium is 3-3.5 Potassium Chloride (Potassium Chloride 20 Meq Tablet) 40 meq PO UD PRN PRN Reason: Potassium < 3 Sodium Chloride (0.9 % Sodium Chloride 10 Ml Syringe) 10 ml IV Q8 [facility] Last Admin: 11/02/22 05:29 Dose: 10 ml A/P Narrative A/P Narrative: A: *N/V/D: likely from cancer medications and GIB -CT a/p unremarkable -c. diff neg, fecal wbc neg *FABIÁN on CK IIIa, likely ATN: 2/2 above -wth hyperphos -poor uop initially, improving but still oliguric -Cr down to 3.3 *Hypotension: Responded to IVF in the ED but still soft. *GIB: unknown etiology, pt is on eliquis and in setting of renal failure/Uremia -this may simply be reversible with holding of AC while FABIÁN is treated *Acute blood loss anemia & GLEN: 2/2 above -hgb 11>9.5 *Metabolic/Lactic acidosis: *Acute on likely chronic hypoxic Respiratory failure: 2/2 widespread pulmonary metastasis -on 1L NC with intermittently on room air *Permanent A-fib: On diltiazem/eliquis *h/o Thyroid CA w/Lung mets, and to likely right iliac bone: *Hypothyroidism: *HTN: *Obese: bmi 34 *SHANNON: * P: -IVF -Nephrology following -Dr Shane consult for endoscopy -monitor H&H -protonix gtt to bid -Iron supp -Monitor renal function/UOP/acid-base status -Hold home diltiazem/ACEI/chlorthalidone for hypotension and FABIÁN -prn IV lopressor -PT/OT -CM for placement needs -ppx: SCDs hold chemical (eliquis) for now for GIB Time Spent With Patient Time: Total time spent is greater than 50% in coordination of care (as documented) at patient's floor/unit and/or counseling patient: Subsequent: Total time with patient: 50 - 65 Minutes
[2022-11-02] MEDS: IRON POLYSACCHARIDE COMPLEX 150 MG CAPSULE PO SCH ×3 (09:33→20:31)
--- NOTE | 2022-11-02 12:39 | General Surgery Consult Note ---
HPI Date of Consult Consult Date: 11/02/22 Requesting physician: Roger Small Primary Care Provider: RYLAN Jackson Consult Narrative Chief complaint: weakness Reason for consult: anemia History of present illness: This is a pleasant 77 y/o female who was admitted 2 days ago with weakness. She reports a history of dark stools and has had a slight drop in h/h over three days. I was asked to see patient to evaluate for upper GI bleed. Patient reports a history of a EGD years ago, but does not remember indication or fin dings. She is currently in ICU tolerating liquid diet without complaints, other than some dark stools. cc:: CC: Roger Small Review of Systems Review of systems: all systems reviewed, negative other than above PFSH PFSH All Active Problems (Updated 11/02/22 @ 12:37 by Krish Shane MD) Anemia (Acute) Periumbilical hernia (Acute) Acute renal failure superimposed on stage 3a chronic kidney disease (Acute) Hypertensive disorder (Chronic) Malignant tumor of thyroid gland (Chronic) Disorder of skeletal system (Chronic) Smoker (Chronic) Ventral hernia (Chronic) Vitamin B12 deficiency (non anemic) (Chronic) Secondary malignant neoplasm of lung (Chronic) Hypercalcemia (Chronic) Upper respiratory infection (Chronic) Diverticulitis (Chronic) Osteopenia (Chronic) Increased frequency of urination (Chronic) Knee pain (Chronic) Gastroenteritis (Chronic) Microscopic hematuria (Chronic) Snoring (Chronic) Bursitis of right hip (Chronic) Colon polyp (Chronic) Lung nodule (Chronic) Chronic kidney disease, stage 3 (Chronic) Chronic kidney disease (CKD) stage G3a/A1, moderately decreased glomerular filtration rate (GFR) between 45-59 mL/min/1.73 square meter and albuminuria cr eatinine ratio less than 30 mg/g (Acute) A-fib (Acute) Low vitamin D level (Acute) FABIÁN (acute kidney injury) (Acute) Acute dehydration (Acute) Nausea vomiting and diarrhea (Acute) Medical History Bursitis of right hip Chronic kidney disease, stage 3 Colon polyp Disorder of skeletal system Diverticulitis Gastroenteritis Hypercalcemia Hypertensive disorder Will probably require 3 drugs for control, no evidence of secondary causes of hypertension Increased frequency of urination Knee pain Lung nodule Malignant tumor of thyroid gland Microscopic hematuria Osteopenia Secondary malignant neoplasm of lung Smoker Snoring Upper respiratory infection Ventral hernia Vitamin B12 deficiency (non anemic) Surgical History History of carpal tunnel release (12/12/99) History of colectomy (10/08/11) History of colonoscopy (04/23/16) History of hernia repair History of hysterectomy (12/11/94) History of sigmoidoscopy (04/22/16) History of thyroidectomy Family History Mother Heart disease Myocardial infarction Father Kidney disease Renal failure syndrome Sister Diabetes Brother Cancer Arthritis Other Family history of breast cancer Social History (Updated 04/13/22 @ 11:03 by Joan Christianson) marital status: single smoking status: Former smoker alcohol intake frequency: does not drink MEDS/ALLERGIES Home Medications and Allergies Home Medications Medication Instructions Recorded Confirmed Type cyanocobalamin (vitamin B-12) 1,000 mcg PO QDAY 12/27/17 11/01/22 History 1,000 mcg tablet apixaban 5 mg tablet (Eliquis) 5 mg PO BID 04/23/22 11/01/22 History ascorbic acid (vitamin C) 500 mg 500 mg PO QDAY 04/23/22 11/01/22 History tablet chlorthalidone 25 mg tablet 25 mg PO QDAY 04/23/22 11/01/22 History lisinopril 5 mg tablet 5 mg PO QDAY HTN #30 tabs 04/23/22 11/01/22 Rx levothyroxine 125 mcg tablet 125 mcg PO QDAY 07/24/22 11/01/22 History lenvatinib 12 mg/day (4 mg x 3) See Rx Instructions .Route .COMPLEX 10/31/22 11/01/22 History capsule (Lenvima) prochlorperazine maleate 10 mg 10 mg PO Q6 10/31/22 11/01/22 History tablet diltiazem HCl 120 mg capsule,24 120 mg PO QDAY 11/01/22 11/01/22 History hr,extended release Allergies Allergy/AdvReac Type Severity Reaction Status Date / Time No Known Drug Allergies Allergy Verified 07/24/22 13:03 Physical Examination Vital Signs Vital signs: Temp Pulse Resp BP Pulse Ox O2 Del Method O2 Flow Rate 97.4 F 87 21 117/63 97 Room Air 1 11/02/22 11:29 11/02/22 10:26 11/02/22 10:26 11/02/22 10:01 11/02/22 10:26 11/02/22 11:29 11/02/22 06:01 General physical appearance General physical exam: well developed, well nourished and no distress Eyes Eye exam: PERRL and normal ocular movement ENT ENT exam: normal pinna, normal nares, normal mucosa, no hearing loss and no congestion Head Head exam IM: Present atraumatic and normocephalic Neck Neck exam: no masses, no bruits, trachea midline, no lymphadenopathy and no venous distension Cardiovascular Cardiovascular exam IM: Present normal rate and rhythm Respiratory Respiratory exam: normal expansion, normal respiratory effort, clear to percussion and clear to auscultation Abdomen Abdomen: Present soft, non tender and bowel sounds Hernia: Present none Genitourinary Genitourinary (Female): Present normal external genitalia Rectum Rectum: Present normal sphincter tone, no hemorrhoids, no tenderness, no masses and no bleeding Integumentary Integumentary: Present no rash, no growths and no abnormal pigmentation Neurologic Neurologic: Present normal coordination and normal sensation Musculoskeletal Musculoskeletal: Present normal gait and normal posture Psychiatric Psychiatric: Present oriented to time, oriented to person, oriented to place, speech is normal and memory intact Results Labs 11/02/22 05:45 11/02/22 05:45 Labs: Abnormal lab results 11/02/22 11/02/22 Range/Units 05:45 05:45 Hgb 9.5 L (11.2-15.7) g/dL MCV 76.1 L (80.0-100.0) fL MCH 19.8 L (26.0-34.0) pg MCHC 26.0 L (31.0-36.0) g/dL RDW 22.8 H (11.5-14.5) % Lymph % (Auto) 9.4 L (15.5-49.0) % [place] % (Auto) 14.1 H (1.0-12.0) % Lymph # (Auto) 0.56 L (1.50-4.80) K/mcL Carbon Dioxide 18 L (22-30) mmol/L BUN 54 H (8-23) mg/dL Creatinine 3.3 H (0.6-1.1) mg/dL Uric Acid 12.1 H (2.5-8.0) mg/dL Calcium 7.4 L (8.6-10.4) mg/dL Lactate Dehydrogenase 127 L (135-225) U/L Total Protein 5.0 L (5.9-8.4) gm/dL Albumin 2.8 L (3.2-5.2) gm/dL Diabetes panel 11/02/22 Range/Units 05:45 Sodium 136 (133-145) mmol/L Potassium 3.6 (3.3-5.1) mmol/L Chloride 107 (96-108) mmol/L Carbon Dioxide 18 L (22-30) mmol/L BUN 54 H (8-23) mg/dL Creatinine 3.3 H (0.6-1.1) mg/dL Glucose 86 (70-105) mg/dL Calcium 7.4 L (8.6-10.4) mg/dL AST 11 (<32) U/L ALT 7 (<40) U/L Alkaline Phosphatase 57 (39-117) U/L Total Protein 5.0 L (5.9-8.4) gm/dL Albumin 2.8 L (3.2-5.2) gm/dL Triglycerides 149 (<150) mg/dL Calcium panel 11/02/22 Range/Units 05:45 Calcium 7.4 L (8.6-10.4) mg/dL Phosphorus 3.5 (2.5-4.5) mg/dL Albumin 2.8 L (3.2-5.2) gm/dL Pituitary panel 11/02/22 Range/Units 05:45 Sodium 136 (133-145) mmol/L Potassium 3.6 (3.3-5.1) mmol/L Chloride 107 (96-108) mmol/L Carbon Dioxide 18 L (22-30) mmol/L BUN 54 H (8-23) mg/dL Creatinine 3.3 H (0.6-1.1) mg/dL Glucose 86 (70-105) mg/dL Calcium 7.4 L (8.6-10.4) mg/dL Adrenal panel 11/02/22 Range/Units 05:45 Sodium 136 (133-145) mmol/L Potassium 3.6 (3.3-5.1) mmol/L Chloride 107 (96-108) mmol/L Carbon Dioxide 18 L (22-30) mmol/L BUN 54 H (8-23) mg/dL Creatinine 3.3 H (0.6-1.1) mg/dL Glucose 86 (70-105) mg/dL Calcium 7.4 L (8.6-10.4) mg/dL Total Bilirubin 0.5 (0.1-1.0) mg/dL AST 11 (<32) U/L ALT 7 (<40) U/L Alkaline Phosphatase 57 (39-117) U/L Total Protein 5.0 L (5.9-8.4) gm/dL Albumin 2.8 L (3.2-5.2) gm/dL All other labs normal. A/P Assessment and plan (1) Anemia: Plan: 77 y/o female with dark stools and slight drop in h/h over several days. Risk, benefits and alternatives d/w patient at length, she understands and desires to continue with EGD Plan: EGD Status: Acute Time Spent With Patient Time: Total time spent is greater than 50% in coordination of care (as documented) at patient's floor/unit and/or counseling patient:
[2022-11-02] MEDS ORDERED: POTASSIUM CHLORIDE 20 MEQ TABLET PO SCH (14:48)
[2022-11-02] MEDS ORDERED: BENZOCAINE 20% 1 SPRAY EACH TOPICAL PRN (16:00)
--- NOTE | 2022-11-02 16:15 | EKG ---
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 Measurements Intervals Finger Rate: 125 P: MI: QRS: 19 QRSD: 70 T: 217 QT: 277 QTc: 401 Interpretive Statements Atrial fibrillation Low voltage, extremity leads Nonspecific repol abnormality, diffuse leads Electronically Signed On 11-02-2022 16:15:16 PDT by Paulie Manzano M.D. /store/M0/[id number]
[2022-11-02] MEDS: PANTOPRAZOLE 40 MG VIAL IV SCH (16:32)
[2022-11-03] MEDS: 0.9 % SODIUM CHLORIDE 10 ML SYRINGE IV SCH ×3 (03:38→14:20)
[2022-11-03] MEDS: 0.9 % SODIUM CHLORIDE 1,000 ML IV SCH (06:05)
[2022-11-03 06:21] LABS: Hematocrit 38.8 % (34.1-44.9); Hemoglobin 10.2 g/dL (11.2-15.7)
[2022-11-03 06:50] LABS: Blood Urea Nitrogen 37 mg/dL (8-23); Calcium 7.7 mg/dL (8.6-10.4); Carbon Dioxide 18 mmol/L (22-30); Chloride 112 mmol/L (96-108); Glomerular Filtration Rate 26; Glucose 81 mg/dL (70-105)
--- NOTE | 2022-11-03 07:02 | Nephrology Progress Note ---
SUBJECTIVE Subjective Patient information: Note initiated : 11/03/22 at 7:00 am Patient: Elana Monte 77 y/o F admitted on 11/01/22 for Esophagogastroduodenoscopy. Chief Complaint: Weakness Pertinent ROS: Weakness Constitutional Vitals: Vital Signs Temp Pulse Resp BP Pulse Ox O2 Del Method O2 Flow Rate 97.7 F 106 H 19 114/58 96 Room Air 1 11/02/22 18:34 11/03/22 03:00 11/03/22 03:00 11/03/22 03:00 11/03/22 03:00 11/03/22 03:00 11/02/22 23:00 Period Temp Pulse Resp BP Sys/Lucas Pulse Ox O2 Del Method O2 Flow Rate Last 24 Hr 97.4 F-98.8 F 75-106 14-21 97-121/57-77 92-98 Nasal Cannula- Room Air 1-2 Intake and Output 11/02/22 11/03/22 11/03/22 19:59 03:59 11:59 Intake Total 540 1000 Output Total 600 150 250 Balance -60 850 -250 Intake & Output: Intake & Output 11/02/22 11/03/22 11/03/22 19:59 03:59 11:59 Intake Total 540 1000 Output Total 600 150 250 Balance -60 850 -250 Intake: IV 1000 Sodium Chloride 0.9% 1,000 ml @ 1000 84 mls/hr IV .[id number] [facility] Rx#: [id number] Oral 540 Output: Void Amount 200 Urine/Stool Mix 400 150 250 Other: Meal Lunch Percent of Meal Consumed 50% Urine Appearance Clear Urine Color Yellow Dark Yellow Yellow Dark Yellow Dark Yellow Urine Odor Normal Normal Stool Size Moderate Moderate Moderate Stool Color Black Black Black Stool Consistency Liquid Watery Liquid Watery # Voids 1 # Bowel Movements 1 General appearance: cooperative and no acute distress Head Head exam: Present normal inspection Eye Eye exam: Present normal appearance ENT ENT exam: Present mucous membranes moist Respiratory Respiratory exam: Absent respiratory distress Cardiovascular Cardiovascular exam: Present normal rate and rhythm GI/Abdominal GI/Abdominal exam: Present soft; Absent tenderness Extremities Exam Extremities exam: Absent joint swelling or pedal edema Neurological Exam Neurological exam: Present alert and oriented X3 Psychiatric Psychiatric exam: Present normal affect and normal mood Skin Skin exam: Present warm; Absent rash A/P Assessment and plan (1) Acute renal failure superimposed on stage 3a chronic kidney disease: Assessment and plan: Elana Monte is a 77-year-old female with hypertension, presented to ED for nausea and vomiting for 7 days and diarrhea for 2 days. In ED, her POC creatinine was 8.0. She was given 2 L IVF, but had no urine output. She was recently diagnosed with thyroid cancer and prescribed lenvatinib. Nephrology consultation was requested for acute kidney injury. Acute kidney injury, likely acute tubular necrosis associated with dehydration and lenvatinib on chronic kidney disease stage 3a with initial metabolic acidosis, present on arrival, resolving. There is no recent history of IV contrast administration or NSAID use. Intravascular volume depletion likely per urine output and adequate IV fluid resuscitation started. Work up: Renal US on 11/01/22: Markedly diminished urine output consistent with acute kidney injury. Renal cysts. No evidence of urinary tract obstruction. Progress: Serum creatinine decreased from 3.3 to 1.8 in the past 24 hours. Baseline serum creatinine: 1.0 (eGFR 54) on 07/18/22. Urine output: 900 ml (mixed with stool) reported in the past 24 hours. Metabolic acidosis. Recommendations/Plan: Nephrology signs off. Status: Acute Time Spent With Patient Time: Total time spent is greater than 50% in coordination of care (as documented) at patient's floor/unit and/or counseling patient:
--- NOTE | 2022-11-03 07:49 | Internal Med Progress Note ---
SUBJECTIVE Subjective Patient information: Note initiated : 11/03/22 at 7:44 am Service Date, if different from initiated Date: [] Patient: Elana Monte a 77 y/o F admitted on 11/01/22 for Esoph agogastroduodenoscopy. Chief Complaint: [] Interval history: History of present illness: Ms. Monte is a 77 year old F Presents to the hospital with nausea vomiting for about a week. 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 Patient complains of feeling weak. Denies hematemesis. She gets nausea vomiting from the cancer medication and when she gets nausea vomit she gets diarrhea. She says her nausea vomiting is been going on for about a week and she has 5-10 episodes per day. She also has diarrhea with the nausea vomiting about the same number of episodes. She did have some dizziness lightheadedness earlier in the week but that resolved. However she has been more weak over the past few days. And she also reports that now her diarrhea became black the day before she presented to the ED, which was a trigger for her to come in and be evaluated. She does have heartburn but that is normal for her and she does not have any increased episodes of it and has no epigastric pain or any abdominal pain. She also reports poor oral intake because she cannot keep anything down. She says Grieser a lot of foods just trigger her nausea and vomiting. Her stool was guaiac positive in the ED. And she was also found to have a creatinine of 8. Case discussed with Dr. Shane for potential endoscopy and for Dr. Thompson nephrology felt the patient could be safely managed here as it is likely secondary to nausea vomiting and should respond to fluids although its likely ATN will take some time. Renal ultrasound was done which was unremarkable for any hydronephrosis or acute pathology. CT abdomen pelvis noncontrast showed pulmonary metastases as noted on no abdominal metastases, no etiology of melena. A lytic lesion noted in the right iliac bone. No acute findings. Hemoglobin was 13 when she arrived however this was definitely hemoconcentrated given her volume loss. Hemoglobin this morning is 11 after several liters of fluid. Also significant as she is got a very low MCV as well as MCH and an elevated RDW concerning for iron deficiency perhaps related to mild chronic GI blood loss. Patient with metabolic acidosis on ABG. She had a lactate of 6.2 initially which improved to 2.2 after IV fluids in the ED. C. difficile in the ED was negative. 11/02 Patient seems to be feeling little better today. Seems to have more energy. Urine output poor , but creatinine improving. Guaiac positive stools. Hemoglobin 9.5. Metabolic acidosis. Discussed case with Dr. Shane regarding endoscopy for GI bleed. 11/03 Patient just returned from endoscopy which showed gastritis and duodenitis, no active bleed. Biopsies obtained. Patient feeling little better today. No overnight event or new complaints. Hemoglobin stable today. Renal function improving. Metabolic acidosis present. Review of Systems: Pertinent positives as above Plus mild chronic cough and shortness of breath but no change. Denies headache/fever/chills/chest or abdominal pain/. PHYSICAL EXAM General: Alert, Awake, No acute Distress, obese Eyes/N/T: EOMI, no scleral icterus, Head/Neck: neck supple, full ROM, CV: RRR, No murmurs, Pulm: Clear b/l, no wheezing/rhonchi/rales, no respiratory distress Abd: soft, nontender, +BS x4 Ext: no clubbing/cyanosis/edema, nontender Neuro: Alert, no focal deficits, moves all extremities, , sensations intact b/l upper/lower Psychiatric: Skin: warm/dry, normal color Constitutional Vitals: Vital Signs Temp Pulse Resp BP Pulse Ox O2 Del Method O2 Flow Rate 99.0 F 108 H 20 126/75 95 Room Air 1 11/03/22 07:00 11/03/22 07:00 11/03/22 07:00 11/03/22 07:00 11/03/22 07:00 11/03/22 07:00 11/02/22 23:00 Period Temp Pulse Resp BP Sys/Lucas Pulse Ox O2 Del Method O2 Flow Rate Last 24 Hr 97.4 F-99.0 F 75-108 14-21 97-126/57-77 92-98 Nasal Cannula- Room Air 1-2 Intake and Output 11/02/22 11/03/22 11/03/22 19:59 03:59 11:59 Intake Total 540 1000 Output Total 600 150 250 Balance -60 850 -250 Intake & Output: Intake & Output 11/02/22 11/03/2223 19:59 03:59 11:59 Intake Total 540 1000 Output Total 600 150 250 Balance -60 850 -250 Intake: IV 1000 Sodium Chloride 0.9% 1,000 ml @ 1000 84 mls/hr IV .[id number] PENDING SALE TO [facility] Rx#: [id number] Oral 540 Output: Void Amount 200 Urine/Stool Mix 400 150 250 Other: Meal Lunch Percent of Meal Consumed 50% Urine Appearance Clear Urine Color Yellow Dark Yellow Yellow Dark Yellow Dark Yellow Urine Odor Normal Normal Stool Size Moderate Moderate Moderate Stool Color Black Black Black Stool Consistency Liquid Watery Liquid Watery # Voids 1 # Bowel Movements 1 OBJ DATA Labs 11/03/22 05:43 11/03/22 05:43 Labs: Abnormal Lab Results 11/03/22 11/03/22 11/02/22 05:43 05:43 05:45 RBC Hgb 10.2 L Hct POC Hct MCV MCH MCHC RDW Lymph % (Auto) [place] % (Auto) Lymph # (Auto) [place] # (Auto) POC VBG pH POC VBG pCO2 at Temp POC VBG HCO3 POC VBG Total CO2 POC Venous O2 Sat POC VBG Base Excess VBG Lactic Acid Chloride 112 H Carbon Dioxide 18 L 18 L POC Total CO2 Anion Gap POC BUN BUN 37 H 54 H Creatinine 1.8 H 3.3 H POC Creatinine POC Glucose Uric Acid 12.1 H Calcium 7.7 L 7.4 L POC WB Ioniz Calcium Phosphorus Iron Unsat Iron Binding Transferrin % Sat Ferritin Direct Bilirubin Lactate Dehydrogenase 127 L Total Protein 5.0 L Albumin 2.8 L Amylase Lipase 11/02/22 11/01/22 11/01/22 05:45 05:25 05:25 RBC 5.55 H Hgb 9.5 L 11.0 L Hct POC Hct MCV 76.1 L 75.3 L MCH 19.8 L 19.8 L MCHC 26.0 L 26.3 L RDW 22.8 H 23.2 H Lymph % (Auto) 9.4 L 6.7 L [place] % (Auto) 14.1 H 16.8 H Lymph # (Auto) 0.56 L 0.64 L [place] # (Auto) 1.60 H POC VBG pH POC VBG pCO2 at Temp POC VBG HCO3 POC VBG Total CO2 POC Venous O2 Sat POC VBG Base Excess VBG Lactic Acid Chloride Carbon Dioxide 19 L POC Total CO2 Anion Gap 18.0 H POC BUN BUN 63 H Creatinine 5.2 H* POC Creatinine POC Glucose Uric Acid Calcium 8.1 L POC WB Ioniz Calcium Phosphorus Iron Unsat Iron Binding Transferrin % Sat Ferritin Direct Bilirubin Lactate Dehydrogenase Total Protein 5.6 L Albumin 3.0 L Amylase Lipase 11/01/22 10/31/22 10/31/22 05:00 22:43 21:37 RBC Hgb Hct POC Hct MCV MCH MCHC RDW Lymph % (Auto) [place] % (Auto) Lymph # (Auto) [place] # (Auto) POC VBG pH POC VBG pCO2 at Temp POC VBG HCO3 POC VBG Total CO2 POC Venous O2 Sat POC VBG Base Excess VBG Lactic Acid Chloride Carbon Dioxide POC Total CO2 21.0 L Anion Gap POC BUN 63 H BUN 64 H Creatinine 5.1 H* POC Creatinine 6.9 H* POC Glucose 66 L Uric Acid Calcium 8.4 L POC WB Ioniz Calcium 1.05 L Phosphorus 7.5 H* Iron 18 L Unsat Iron Binding 347 H Transferrin % Sat 5 L Ferritin 24.3 L Direct Bilirubin Lactate Dehydrogenase Total Protein Albumin Amylase Lipase 10/31/22 10/31/22 10/31/22 21:33 19:48 19:26 RBC Hgb Hct POC Hct MCV MCH MCHC RDW Lymph % (Auto) [place] % (Auto) Lymph # (Auto) [place] # (Auto) POC VBG pH 7.24 L 7.30 L POC VBG pCO2 at Temp 38.0 L POC VBG HCO3 21.4 L 18.6 L POC VBG Total CO2 23.0 L 20.0 L POC Venous O2 Sat 34.0 L POC VBG Base Excess -6.0 L -8.0 L VBG Lactic Acid 2.2 H 6.2 H* Chloride Carbon Dioxide POC Total CO2 Anion Gap POC BUN BUN Creatinine POC Creatinine POC Glucose Uric Acid Calcium POC WB Ioniz Calcium Phosphorus Iron Unsat Iron Binding Transferrin % Sat Ferritin Direct Bilirubin 0.3 H Lactate Dehydrogenase Total Protein Albumin Amylase < 3 L Lipase < 3 L 10/31/22 10/31/22 19:26 19:17 RBC 7.02 H Hgb Hct 51.1 H POC Hct 52.0 H MCV 72.8 L MCH 19.8 L MCHC 27.2 L RDW 23.9 H Lymph % (Auto) 11.6 L [place] % (Auto) 15.2 H Lymph # (Auto) 1.01 L [place] # (Auto) 1.32 H POC VBG pH POC VBG pCO2 at Temp POC VBG HCO3 POC VBG Total CO2 POC Venous O2 Sat POC VBG Base Excess VBG Lactic Acid Chloride Carbon Dioxide POC Total CO2 19.0 L Anion Gap POC BUN 65 H BUN Creatinine POC Creatinine 8.0 H* POC Glucose 148 H Uric Acid Calcium POC WB Ioniz Calcium Phosphorus Iron Unsat Iron Binding Transferrin % Sat Ferritin Direct Bilirubin Lactate Dehydrogenase Total Protein Albumin Amylase Lipase Meds: Medications Acetaminophen (Acetaminophen 325 Mg Tablet) 650 mg PO Q6HP PRN; Protocol PRN Reason: Per Pain Protocol/Fever > 101 Albuterol/Ipratropium (Ipratropium/Albuterol 3 Ml Ampul.Neb) 3 ml NEB Q4HP PRN PRN Reason: Shortness Of Breath Benzocaine (Benzocaine 20% 1 [place] Each) 1 spray TOPICAL QIDP PRN PRN Reason: Analgesia Last Admin: 11/02/22 16:03 Dose: 1 spray Sodium Chloride (Sodium Chloride 0.9%) 1,000 mls @ 84 mls/hr IV .[id number] PENDING SALE TO [facility] Last Admin: 11/03/22 06:05 Dose: 84 mls/hr Potassium Chloride 40 meq/ (Dextrose) 520 mls @ 130 mls/hr IV UD PRN PRN Reason: Potassium < 3 Magnesium Sulfate (Magnesium Sulfate) 2 gm in 50 mls @ 50 mls/hr IV UD PRN PRN Reason: Magnesium </= 1.6 Levothyroxine Sodium (Levothyroxine 125 Mcg Tablet) 125 mcg PO QAMAC [facility] Last Admin: 11/02/22 07:04 Dose: 125 mcg Metoprolol Tartrate (Metoprolol Tartrate 5 Mg/5 Ml Vial) 5 mg IV Q2HP PRN PRN Reason: Tachyarrhythmias HR>110 Morphine Sulfate (Morphine 2 Mg/Ml Vial) 2 mg IV Q4HP PRN; Protocol PRN Reason: Per Pain Protocol Naloxone HCl (Naloxone Hcl 0.4 Mg/Ml Vial) 0.1 mg IV Q2MIN PRN PRN Reason: Opiate Reversal Ondansetron HCl (Ondansetron 4 Mg/2 Ml Vial) 4 mg IV Q4HP PRN; Protocol PRN Reason: Nausea And Vomiting Pantoprazole Sodium (Pantoprazole 40 Mg Vial) 40 mg IV BIDAC [facility]END[facility] TO [facility] Last Admin: 11/02/22 16:32 Dose: 40 mg Polysaccharide Iron Complex (Iron Polysaccharide Complex 150 Mg Capsule) 150 mg PO BID [facility] Last Admin: 11/02/22 20:31 Dose: 150 mg Potassium Chloride (Potassium Chloride 20 Meq Tablet) 40 meq PO UD PRN PRN Reason: Potssium is 3-3.5 Potassium Chloride (Potassium Chloride 20 Meq Tablet) 40 meq PO UD PRN PRN Reason: Potassium < 3 Sodium Chloride (0.9 % Sodium Chloride 10 Ml Syringe) 10 ml IV Q8 [facility] Last Admin: 11/03/22 04:52 Dose: Not Given A/P Narrative A/P Narrative: A: *N/V/D: likely from cancer medications and GIB -CT a/p unremarkable -c. diff neg, fecal wbc neg *FABIÁN on CK IIIa, likely ATN: 2/2 above -wth hyperphos (improved) -poor uop initially, improving -Cr down to 1.8 *Hypotension: Responded to IVF in the ED but still soft. *GIB: unknown etiology, pt is on eliquis and in setting of renal failure/Uremia -this may simply be reversible with holding of AC while FABIÁN is treated -seems to have resolved, however, she has been off her Eliquis *Acute blood loss anemia & GLEN: 2/2 above -dropped but leveling out *Metabolic/Lactic acidosis: *Acute on likely chronic hypoxic Respiratory failure: 2/2 widespread pulmonary metastasis -on 0-1L NC *Permanent A-fib: On diltiazem/eliquis *h/o Thyroid CA w/Lung mets, and to likely right iliac bone: *Hypothyroidism: *HTN: *Obese: bmi 34 *SHANNON: P: -IVF's change to 1/2NS for day then stop -Nephrology following -Dr Shane for endoscopy today -monitor H&H -protonix bid, carafate -Iron supp -Monitor renal function/UOP/acid-base status -Hold home diltiazem/ACEI/chlorthalidone for hypotension and FABIÁN -prn IV lopressor -PT/OT -CM for placement needs -ppx: SCDs hold, restart eliquis tomorrow if remains stable Time Spent With Patient Time: Total time spent is greater than 50% in coordination of care (as documented) at patient's floor/unit and/or counseling patient: Subsequent: Total time with patient: 50 - 65 Minutes
[2022-11-03] MEDS ORDERED: LIDOCAINE HCL/PF 100 MG/5 ML SYRINGE IV ONE (08:00)
[2022-11-03] MEDS ORDERED: PROPOFOL 200 MG/20 ML VIAL IV ONE (08:00)
--- NOTE | 2022-11-03 08:24 | EGD Procedure Note ---
EGD Procedure Notes Procedure Information Patient information: Note initiated : 11/03/22 at 8:22 am Patient: Elana Monte 77 y/o F admitted on 11/01/22 for Esophagogastroduodenoscopy. Date of Procedure: 11/03/22 Pre-Op Diagnosis: Dark and melanotic stools Post-Op Diagnosis: Same Procedure: EGD with Bx Procedure Narrative: After risk benefits and alternatives to the procedure were discussed with the patient at length she verbalized understanding and desire to continue with the procedure. Patient was taken to endoscopy. Surgical timeout was taken to verify patient and procedure being performed. Monitored anesthesia care was administered throughout the case. An adult gastroscope was entered and advanced under direct vision into the s econd portion of the duodenum. The antrum was fully inspected, the scope was retroflexed in the stomach. Full examination revealed mild duodenitis, mild gastritis, no evidence of active bleed, no evidence of ulcer. Gastric biopsies were taken to rule out H. pylori. The GE junction was at 32 cm and the esophagus was normal on full exam. EBL none. Patient tolerated procedure well. Anesthesia: MAC Findings: Mild duodenitis and gastritis without evidence of active bleed Complications: none Surgeon: Krish Shane Specimens Removed/Pathology: other (Gastric biopsy) Assessment: No evidence of active bleed. Please call with any further questions.
[2022-11-03] MEDS: LEVOTHYROXINE 125 MCG TABLET PO SCH (08:47)
[2022-11-03] MEDS: PANTOPRAZOLE 40 MG VIAL IV SCH ×2 (08:47→16:59)
[2022-11-03] MEDS: 0.45 % SODIUM CHLORIDE 1,000 ML IV SCH ×2 (08:47→08:48)
[2022-11-03] MEDS: IRON POLYSACCHARIDE COMPLEX 150 MG CAPSULE PO SCH ×2 (08:47→21:42)
[2022-11-03] MEDS: SUCRALFATE 1 GM/10 ML ORAL.SUSP PO SCH ×4 (09:27→21:42)
[2022-11-04] MEDS: 0.45 % SODIUM CHLORIDE 1,000 ML IV SCH (00:41)
[2022-11-04] MEDS: 0.9 % SODIUM CHLORIDE 10 ML SYRINGE IV SCH ×4 (05:59→22:31)
[2022-11-04 06:44] LABS: Basophils # (Auto) 0.01 K/mcL (0.00-0.30); Basophils % (Auto) 0.2 % (0.0-2.0); Eosinophils # (Auto) 0.16 K/mcL (0.00-0.70); Eosinophils % (Auto) 2.7 % (0.0-7.0); Hematocrit 35.4 % (34.1-44.9); Hemoglobin 9.3 g/dL (11.2-15.7); Lymphocytes # (Auto) 0.72 K/mcL (1.50-4.80); Lymphocytes % (Auto) 12.2 % (15.5-49.0); Mean Cell Volume 75.5 fL (80.0-100.0); Mean Corpuscular HGB Conc 26.3 g/dL (31.0-36.0); Mean Platelet Volume 10.6 fL (8.8-12.5); Monocytes # (Auto) 1.16 K/mcL (0.10-0.90); Monocytes % (Auto) 19.7 % (1.0-12.0); Platelet Count 163 K/mcL (140-440); RBC 4.69 M/mcL (3.59-5.38); Red Cell Distribution Width 23.4 % (11.5-14.5); WBC 5.9 K/mcL (4.5-11.0)
[2022-11-04 07:14] LABS: Blood Urea Nitrogen 20 mg/dL (8-23); Calcium 7.8 mg/dL (8.6-10.4); Carbon Dioxide 19 mmol/L (22-30); Chloride 110 mmol/L (96-108); Glomerular Filtration Rate 43; Glucose 82 mg/dL (70-105)
[2022-11-04] MEDS: SUCRALFATE 1 GM/10 ML ORAL.SUSP PO SCH ×4 (07:21→22:09)
[2022-11-04] MEDS: LEVOTHYROXINE 125 MCG TABLET PO SCH (07:21)
[2022-11-04] MEDS: PANTOPRAZOLE 40 MG VIAL IV SCH ×2 (07:21→18:51)
--- NOTE | 2022-11-04 07:33 | Internal Med Progress Note ---
SUBJECTIVE Subjective Patient information: Note initiated : 11/04/22 at 7:29 am Service Date, if different from initiated Date: [] Patient: Elana Monte a 77 y/o F admitted on 11/01/22 for Esoph agogastroduodenoscopy. Chief Complaint: [] Interval history: History of present illness: Ms. Monte is a 77 year old F Presents to the hospital with nausea vomiting for about a week. 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 Patient complains of feeling weak. Denies hematemesis. She gets nausea vomiting from the cancer medication and when she gets nausea vomit she gets diarrhea. She says her nausea vomiting is been going on for about a week and she has 5-10 episodes per day. She also has diarrhea with the nausea vomiting about the same number of episodes. She did have some dizziness lightheadedness earlier in the week but that resolved. However she has been more weak over the past few days. And she also reports that now her diarrhea became black the day before she presented to the ED, which was a trigger for her to come in and be evaluated. She does have heartburn but that is normal for her and she does not have any increased episodes of it and has no epigastric pain or any abdominal pain. She also reports poor oral intake because she cannot keep anything down. She says Grieser a lot of foods just trigger her nausea and vomiting. Her stool was guaiac positive in the ED. And she was also found to have a creatinine of 8. Case discussed with Dr. Shane for potential endoscopy and for Dr. Thompson nephrology felt the patient could be safely managed here as it is likely secondary to nausea vomiting and should respond to fluids although its likely ATN will take some time. Renal ultrasound was done which was unremarkable for any hydronephrosis or acute pathology. CT abdomen pelvis noncontrast showed pulmonary metastases as noted on no abdominal metastases, no etiology of melena. A lytic lesion noted in the right iliac bone. No acute findings. Hemoglobin was 13 when she arrived however this was definitely hemoconcentrated given her volume loss. Hemoglobin this morning is 11 after several liters of fluid. Also significant as she is got a very low MCV as well as MCH and an elevated RDW concerning for iron deficiency perhaps related to mild chronic GI blood loss. Patient with metabolic acidosis on ABG. She had a lactate of 6.2 initially which improved to 2.2 after IV fluids in the ED. C. difficile in the ED was negative. 11/02 Patient seems to be feeling little better today. Seems to have more energy. Urine output poor , but creatinine improving. Guaiac positive stools. Hemoglobin 9.5. Metabolic acidosis. Discussed case with Dr. Shane regarding endoscopy for GI bleed. 11/03 Patient just returned from endoscopy which showed gastritis and duodenitis, no active bleed. Biopsies obtained. Patient feeling little better today. No overnight event or new complaints. Hemoglobin stable today. Renal function improving. Metabolic acidosis present. 11/04 Patient feeling better today. No bloody stools overnight. EGD with duodenitis and gastritis. Continue with PPI. Restart Eliquis today monitor for bleeding. Stop IV fluids that are also causing a dilutional effect to the hemoglobin. Kidney function improved. Review of Systems: Pertinent positives as above Plus mild chronic cough and shortness of breath but no change. Denies headache/fever/chills/chest or abdominal pain/. PHYSICAL EXAM General: Alert, Awake, No acute Distress, obese Eyes/N/T: EOMI, no scleral icterus, Head/Neck: neck supple, full ROM, CV: RRR, No murmurs, Pulm: Clear b/l, no wheezing/rhonchi/rales, no respiratory distress Abd: soft, nontender, +BS x4 Ext: no clubbing/cyanosis/edema, nontender Neuro: Alert, no focal deficits, moves all extremities, , sensations intact b/l upper/lower Psychiatric: Skin: warm/dry, normal color Constitutional Vitals: Vital Signs Temp Pulse Resp BP Pulse Ox O2 Del Method O2 Flow Rate 98.6 F 60 18 120/59 95 Room Air 0 11/04/22 03:11 11/04/22 03:11 11/04/22 03:11 11/04/22 03:11 11/04/22 03:11 11/04/22 03:11 11/03/22 16:00 Period Temp Pulse Resp BP Sys/Lucas Pulse Ox O2 Del Method O2 Flow Rate Last 24 Hr 97.7 F-98.6 F 35-204 17-27 92-137/40-93 91-100 Nasal Cannula- Room Air 0-5 Intake and Output 11/03/22 11/04/22 11/04/22 19:59 03:59 11:59 Intake Total 1595 1000 240 Output Total 275 550 Balance 1320 1000 -310 Weight 75.948 kg Intake & Output: Intake & Output 11/03/22 11/04/22 11/04/22 19:59 03:59 11:59 Intake Total 1595 1000 240 Output Total 275 550 Balance 1320 1000 -310 Weight 75.948 kg Intake: IV 515 1000 Sodium Chloride 0.45% 1,000 ml 1000 @ 75 mls/hr IV .[id number] [facility] Rx# :[id number] Sodium Chloride 0.9% 1,000 ml @ 515 84 mls/hr IV .[id number] [facility] Rx#: [id number] Oral 1080 240 Output: Void Amount 550 Urine/Stool Mix 275 Other: Meal Lunch Percent of Meal Consumed 100% Feeding Ability Assist with Tray Set Up Stool Size Moderate Stool Color Green Stool Consistency Loose OBJ DATA Labs 11/04/22 05:49 11/04/22 05:49 Labs: Abnormal Lab Results 11/04/22 11/04/22 11/03/22 05:49 05:49 05:43 Hgb 9.3 L 10.2 L MCV 75.5 L MCH 19.8 L MCHC 26.3 L RDW 23.4 H Lymph % (Auto) 12.2 L [place] % (Auto) 19.7 H Lymph # (Auto) 0.72 L [place] # (Auto) 1.16 H Chloride 110 H Carbon Dioxide 19 L BUN Creatinine 1.2 H Uric Acid Calcium 7.8 L Iron Unsat Iron Binding Transferrin % Sat Ferritin Lactate Dehydrogenase Total Protein Albumin 11/03/22 11/03/22 11/02/22 05:43 05:42 05:45 Hgb MCV MCH MCHC RDW Lymph % (Auto) [place] % (Auto) Lymph # (Auto) [place] # (Auto) Chloride 112 H Carbon Dioxide 18 L 18 L BUN 37 H 54 H Creatinine 1.8 H 3.3 H Uric Acid 10.0 H 12.1 H Calcium 7.7 L 7.4 L Iron Unsat Iron Binding Transferrin % Sat Ferritin Lactate Dehydrogenase 127 L Total Protein 5.0 L Albumin 2.8 L 11/02/22 11/01/22 05:45 05:00 Hgb 9.5 L MCV 76.1 L MCH 19.8 L MCHC 26.0 L RDW 22.8 H Lymph % (Auto) 9.4 L [place] % (Auto) 14.1 H Lymph # (Auto) 0.56 L [place] # (Auto) Chloride Carbon Dioxide BUN Creatinine Uric Acid Calcium Iron 18 L Unsat Iron Binding 347 H Transferrin % Sat 5 L Ferritin 24.3 L Lactate Dehydrogenase Total Protein Albumin Meds: Medications Acetaminophen (Acetaminophen 325 Mg Tablet) 650 mg PO Q6HP PRN; Protocol PRN Reason: Per Pain Protocol/Fever > 101 Albuterol/Ipratropium (Ipratropium/Albuterol 3 Ml Ampul.Neb) 3 ml NEB Q4HP PRN PRN Reason: Shortness Of Breath Benzocaine (Benzocaine 20% 1 [place] Each) 1 spray TOPICAL QIDP PRN PRN Reason: Analgesia Last Admin: 11/02/22 16:03 Dose: 1 spray Potassium Chloride 40 meq/ (Dextrose) 520 mls @ 130 mls/hr IV UD PRN PRN Reason: Potassium < 3 Magnesium Sulfate (Magnesium Sulfate) 2 gm in 50 mls @ 50 mls/hr IV UD PRN PRN Reason: Magnesium </= 1.6 Sodium Chloride (Sodium Chloride 0.45%) 1,000 mls @ 75 mls/hr IV .[id number] [facility] Last Admin: 11/04/22 00:41 Dose: 75 mls/hr Levothyroxine Sodium (Levothyroxine 125 Mcg Tablet) 125 mcg PO QAMAC [facility] Last Admin: 11/04/22 07:21 Dose: 125 mcg Metoprolol Tartrate (Metoprolol Tartrate 5 Mg/5 Ml Vial) 5 mg IV Q2HP PRN PRN Reason: Tachyarrhythmias HR>110 Morphine Sulfate (Morphine 2 Mg/Ml Vial) 2 mg IV Q4HP PRN; Protocol PRN Reason: Per Pain Protocol Naloxone HCl (Naloxone Hcl 0.4 Mg/Ml Vial) 0.1 mg IV Q2MIN PRN PRN Reason: Opiate Reversal Ondansetron HCl (Ondansetron 4 Mg/2 Ml Vial) 4 mg IV Q4HP PRN; Protocol PRN Reason: Nausea And Vomiting Pantoprazole Sodium (Pantoprazole 40 Mg Vial) 40 mg IV BIDAC [facility] Last Admin: 11/04/22 07:21 Dose: 40 mg Polysaccharide Iron Complex (Iron Polysaccharide Complex 150 Mg Capsule) 150 mg PO BID [facility] Last Admin: 11/03/22 21:42 Dose: 150 mg Potassium Chloride (Potassium Chloride 20 Meq Tablet) 40 meq PO UD PRN PRN Reason: Potssium is 3-3.5 Potassium Chloride (Potassium Chloride 20 Meq Tablet) 40 meq PO UD PRN PRN Reason: Potassium < 3 Sodium Chloride (0.9 % Sodium Chloride 10 Ml Syringe) 10 ml IV Q8 [facility] Last Admin: 11/04/22 05:59 Dose: Not Given Sucralfate (Sucralfate 1 Gm/10 Ml Oral.Susp) 1 gm PO ACHS [facility] Stop: 11/04/22 21:01 Last Admin: 11/04/22 07:21 Dose: 1 gm A/P Narrative A/P Narrative: A: *N/V/D: likely from cancer medications and GIB. resolved -CT a/p unremarkable -c. 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 *GIB: 2/2 gastritis/duodenitis, pt is on eliquis and in setting of renal failure/Uremia -EGD 11/03 -this may simply be reversible with holding of AC while FABIÁN is treated -resolved *Acute blood loss anemia & GLEN: 2/2 above -stable *Metabolic/Lactic acidosis: *Acute on likely chronic hypoxic Respiratory failure: 2/2 widespread pulmonary metastasis -on room air *Permanent A-fib: On diltiazem/eliquis *h/o Thyroid CA w/Lung mets, and to likely right iliac bone: *Hypothyroidism: *HTN: *Obese: bmi 34 *SHANNON: P: -d/c IVF's -Nephrology sign off -monitor H&H -protonix bid, -Iron supp -Monitor renal function/UOP/acid-base status -Hold home diltiazem/ACEI/chlorthalidone for hypotension and FABIÁN -prn IV lopressor -PT/OT -CM for placement needs -ppx: SCDs, restart eliquis and monitor for bleeding, if no further bleeding then likely d/c tomorrow Time Spent With Patient Time: Total time spent is greater than 50% in coordination of care (as documented) at patient's floor/unit and/or counseling patient: Subsequent: Total time with patient: 35 - 49 minutes
[2022-11-04] MEDS: IRON POLYSACCHARIDE COMPLEX 150 MG CAPSULE PO SCH ×2 (09:56→22:09)
[2022-11-05] MEDS: 0.9 % SODIUM CHLORIDE 10 ML SYRINGE IV SCH ×3 (06:23→15:38)
[2022-11-05 06:46] LABS: Hematocrit 35.9 % (34.1-44.9); Hemoglobin 9.9 g/dL (11.2-15.7)
[2022-11-05 07:18] LABS: Blood Urea Nitrogen 11 mg/dL (8-23); Calcium 7.8 mg/dL (8.6-10.4); Carbon Dioxide 23 mmol/L (22-30); Chloride 107 mmol/L (96-108); Glomerular Filtration Rate 61; Glucose 90 mg/dL (70-105)
[2022-11-05] MEDS: LEVOTHYROXINE 125 MCG TABLET PO SCH (08:17)
[2022-11-05] MEDS: PANTOPRAZOLE 40 MG VIAL IV SCH (08:17)
[2022-11-05] MEDS: IRON POLYSACCHARIDE COMPLEX 150 MG CAPSULE PO SCH (08:24)
--- NOTE | 2022-11-05 11:12 | Discharge Summary ---
Discharge Provider Provider IMPORTANT FOLLOW-UP INFORMATION FOR PCP: Patient information: Note initiated : 11/05/22 at 11:09 am Service Date, if different from initiated Date: [] Patient: Elana Monte a 77 y/o F admitted on 11/01/22 for Esophagogastroduodenoscopy. Chief Complaint: [] Date of admission: 11/01/22 01:43 Discharge date: 11/05/22 Primary care physician: Jhon Caldwell DNP Attending physician on admission: Roger Small Consults: 10/31/22 Consult to Physician [CONS] Stat Comment: Admission Consulting Provider: Roger Small Reason For Exam: Physician to Consult 11/01/22 00:51 Consult to Physician [CONS] Stat Comment: Already done Consulting Provider: Minna Thompson Reason For Exam: Physician to Consult 11/01/22 08:41 Consult to Physician [CONS] Routine Comment: gi bleed, on eliquis for Afib Consulting Provider: Krish Shane Reason For Exam: Physician to Consult Attending physician on discharge: [facility] COURSE Hospital Course Hospital course: Ms. Monte is a 77 year old F Presents to the hospital with nausea vomiting for about a week. 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 Patient complains of feeling weak. Denies hematemesis. She gets nausea vomiting from the cancer medication and when she gets nausea vomit she gets diarrhea. She says her nausea vomiting is been going on for about a week and she has 5-10 episodes per day. She also has diarrhea with the nausea vomiting about the same number of episodes. She did have some dizziness lightheadedness earlier in the week but that resolved. However she has been more weak over the past few days. And she also reports that now her diarrhea became black the day before she presented to the ED, which was a trigger for her to come in and be evaluated. She does have heartburn but that is normal for her and she does not have any increased episodes of it and has no epigastric pain or any abdominal pain. She also reports poor oral intake because she cannot keep anything down. She says Grieser a lot of foods just trigger her nausea and vomiting. Her stool was guaiac positive in the ED. And she was also found to have a creatinine of 8. Case discussed with Dr. Shane for potential endoscopy and for Dr. Thompson nephrology felt the patient could be safely managed here as it is likely secondary to nausea vomiting and should respond to fluids although its likely ATN will take some time. Renal ultrasound was done which was unremarkable for any hydronephrosis or acute pathology. CT abdomen pelvis noncontrast showed pulmonary metastases as noted on no abdominal metastases, no etiology of melena. A lytic lesion noted in the right iliac bone. No acute findings. Hemoglobin was 13 when she arrived however this was definitely hemoconcentrated given her volume loss. Hemoglobin this morning is 11 after several liters of fluid. Also significant as she is got a very low MCV as well as MCH and an elevated RDW concerning for iron deficiency perhaps related to mild chronic GI blood loss. Patient with metabolic acidosis on ABG. She had a lactate of 6.2 initially which improved to 2.2 after IV fluids in the ED. C. difficile in the ED was negative. 11/02 Patient seems to be feeling little better today. Seems to have more energy. Urine output poor , but creatinine improving. Guaiac positive stools. Hemoglobin 9.5. Metabolic acidosis. Discussed case with Dr. Shane regarding endoscopy for GI bleed. 11/03 Patient just returned from endoscopy which showed gastritis and duodenitis, no active bleed. Biopsies obtained. Patient feeling little better today. No overnight event or new complaints. Hemoglobin stable today. Renal function improving. Metabolic acidosis present. 11/04 Patient feeling better today. No bloody stools overnight. EGD with duodenitis and gastritis. Continue with PPI. Restart Eliquis today monitor for bleeding. Stop IV fluids that are also causing a dilutional effect to the hemoglobin. Kidney function improved. 11/05: Discharged home. Rx given/sent to pharmacy. 2 week PCP appointment made for her. All questions answered prior to patient being physically discharged. Discharge diagnosis: Doudenitis/gastritis Time Spent with Patient Time attestation: Total time spent providing and/or coordinating discharge services: Time spent: Less than 30 minutes EXAM Constitutional Vitals: Temp Pulse Resp BP Pulse Ox O2 Del Method O2 Flow Rate 36.8 C 90 16 129/69 98 Room Air 0 11/05/22 07:34 11/05/22 07:34 11/05/22 07:34 11/05/22 07:34 11/05/22 07:34 11/05/22 07:34 11/03/22 16:00 General appearance: cooperative and no acute distress Head Head exam: Present atraumatic and normocephalic Eye Eye exam: Present EOMI and PERRL ENT ENT exam: Present mucous membranes moist, normal exam and normal external ear exam Neck Neck exam: Present normal inspection; Absent lymphadenopathy, tenderness or thyromegaly Respiratory Respiratory exam: Absent accessory muscle use, respiratory distress or wheezes Cardiovascular Cardiovascular exam: Present irregular rhythm; Absent JVD GI/Abdominal GI/Abdominal exam: Present normal bowel sounds and soft; Absent organomegaly or tenderness Extremities Exam Extremities exam: Present full ROM, normal capillary refill and normal inspection; Absent tenderness Neurological Exam Neurological exam: Present alert, CN II-XII intact and oriented X3; Absent motor sensory deficit Psychiatric Psychiatric exam: Present normal affect and normal mood; Absent anxious or depr essed Skin Skin exam: Present dry and intact Discharge Data Data Completed and Pending Labs on day of discharge: Labs from last 24 hours 11/05/22 11/05/22 05:41 05:41 Hgb 9.9 L Hct 35.9 Sodium 142 Potassium 3.5 Chloride 107 Carbon Dioxide 23 Anion Gap 12.0 BUN 11 Creatinine 0.9 GFR Calculation 61 Glucose 90 Calcium 7.8 L Preliminary micro results at discharge 10/31/22 19:51 Blood Culture - Preliminary Blood 10/31/22 19:45 Blood Culture - Preliminary Blood Discharge Plan Patient/Caregiver Discharge Instructions Activity: increase activity as tolerated Diet: Regular Diet Prescriptions: New ondansetron 4 mg tablet,disintegrating 4 mg PO Q8H PRN (Reason: nausea and vomiting) Qty: 20 0RF pantoprazole [Protonix] 20 mg tablet,delayed release (DR/EC) 40 mg PO BID Qty: 60 2RF Continued cyanocobalamin (vitamin B-12) 1,000 mcg tablet 1,000 mcg PO QDAY ascorbic acid (vitamin C) 500 mg tablet 500 mg PO QDAY Eliquis 5 mg tablet 5 mg PO BID chlorthalidone 25 mg tablet 25 mg PO QDAY lisinopril 5 mg tablet 5 mg PO QDAY Qty: 30 11RF Rx Instructions: Reduced dose of Lisinopril levothyroxine 125 mcg tablet 125 mcg PO QDAY prochlorperazine maleate 10 mg tablet 10 mg PO Q6 Lenvima 12 mg/day (4 mg x 3) capsule See Rx Instructions .ROUTE .COMPLEX Rx Instructions: pt takes x1 a day diltiazem HCl 120 mg capsule,extended release 24 hr 120 mg PO QDAY Follow Up Plan Follow up with: Jhon Caldwell DNP [Primary Care Provider] - Patient Disposition: Home, Self-Care Prognosis: Fair Rehab Potential: Good I certify that the patient requires SNF services: No Overall status at discharge: patient is back to baseline Discharge Orders: Discharge Order (Routine); Ordered 11/05/22 Ordered By: Tre Mayen
== END 2022-11-05 13:23 | disposition home or self-care (01) | DRG 682 ==
LOC: ED 18:55 → ICU 11-01 01:43 → MEDSUR 11-02 15:32
PROVIDERS: ADMIT Internal Medicine; ATTEND Internal Medicine

== ENCOUNTER 2025-06-10 06:56 | Observation (INO) ==
[2025-06-10] MEDS ORDERED: IOPAMIDOL 100 ML BOTTLE IV ONE (06:57)
[2025-06-10] MEDS: ONDANSETRON 4 MG/2 ML VIAL IV ONE ×2 (07:26→09:42)
[2025-06-10] MEDS: fentaNYL 100 MCG/2 ML VIAL IV PRN (07:26)
[2025-06-10] MEDS: LACTATED RINGERS 1,000 ML IV SCH ×2 (07:30→18:21)
[2025-06-10] MEDS: cefTRIAXone 1 GM VIAL IV ONE (07:59)
[2025-06-10 08:09] LABS: VBG HCO3 28.3 mmol/L (24.0-28.0); VBG PCO2 45.0 mmHg (41.0-51.0); VBG PH 7.42 U (7.32-7.42); VBG PO2 38.3 mmHg (25.0-40.0)
[2025-06-10 08:43] LABS: C-Reactive Protein 15.40 mg/dL (0.03-0.80)
[2025-06-10 08:50] LABS: Basophils # (Auto) 0.09 K/mcL (0.00-0.30); Basophils % (Auto) 0.1 % (0.0-2.0); Eosinophils # (Auto) 1.85 K/mcL (0.00-0.70); Eosinophils % (Auto) 2.9 % (0.0-7.0); Hematocrit 26.2 % (34.1-44.9); Hemoglobin 7.4 g/dL (11.2-15.7); Lymphocytes # (Auto) 1.00 K/mcL (1.50-4.80); Lymphocytes % (Auto) 1.6 % (15.5-49.0); Mean Corpuscular HGB Conc 28.2 g/dL (31.0-36.0); Monocytes # (Auto) 6.01 K/mcL (0.10-0.90); Monocytes % (Auto) 9.6 % (1.0-12.0); Neutrophils % (Auto) 81.2 % (38.0-78.0); Platelet Count 228 K/mcL (140-440); RBC 2.88 M/mcL (3.59-5.38); WBC 62.8 K/mcL (4.5-11.0)
[2025-06-10 09:08] LABS: ALT/SGPT 8 U/L (<40); AST/SGOT 15 U/L (<32); Albumin 3.0 gm/dL (3.2-5.2); Albumin/Globulin Ratio 1.3 (1.0-2.3); Alkaline Phosphatase 91 U/L (39-117); Anion Gap 13.0 (8.0-16.0); Bilirubin,Total 1.1 mg/dL (0.1-1.0); Blood Urea Nitrogen 39 mg/dL (8-23); Calcium 10.0 mg/dL (8.6-10.4); Carbon Dioxide 29 mmol/L (22-30); Chloride 100 mmol/L (96-108); Globulin 2.4 gm/dL (2.2-3.7); Glucose 124 mg/dL (70-105); Potassium 2.7 mmol/L (3.3-5.1); Sodium 142 mmol/L (133-145)
[2025-06-10] MEDS: POTASSIUM CHLORIDE 20 MEQ PACKET PO ONE (09:36)
[2025-06-10] MEDS: POTASSIUM CHLORIDE 10 MEQ/100 ML BAG IV SCH (09:36)
[2025-06-10] MEDS: POTASSIUM CHLORIDE 20 MEQ in DEXTROSE 5% IN WATER 250 ML IV ONE (09:36)
[2025-06-10 10:40] LABS: INR 2.2 (0.9-1.1); Prothrombin Time 26.4 sec (11.9-14.5)
[2025-06-10 11:18] LABS: Bacteria,Urine Few /hpf (0); Bilirubin,Urine Negative (Negative); Color,Urine DK. RED; Glucose,Urine (UA) 250 mg/dL (Negative); Ketones,Urine Color Interference mg/dL (Negative); Leukocyte Esterase,Urine Color Interference /uL (Negative); PH,Urine 5.0 (5.0-9.0); Protein,Urine >=300 mg/dL (Negative); Specific Gravity,Urine 1.015 (1.000-1.035)
[2025-06-10] MEDS: IPRATROPIUM/ALBUTEROL 3 ML AMPUL.NEB NEB ONE (12:06)
[2025-06-10] MEDS ORDERED: ACETAMINOPHEN 325 MG TABLET PO PRN (15:05)
[2025-06-10] MEDS: 0.9 % SODIUM CHLORIDE 10 ML SYRINGE IV SCH ×2 (17:10→20:31)
[2025-06-10] MEDS: IPRATROPIUM/ALBUTEROL 3 ML AMPUL.NEB NEB PRN (17:19)
[2025-06-10 17:26] LABS: ALT/SGPT 9 U/L (<40); AST/SGOT 14 U/L (<32); Albumin 2.9 gm/dL (3.2-5.2); Albumin/Globulin Ratio 1.3 (1.0-2.3); Alkaline Phosphatase 85 U/L (39-117); Anion Gap 11.0 (8.0-16.0); Bilirubin,Direct 0.5 mg/dL (<0.3); Bilirubin,Total 0.8 mg/dL (0.1-1.0); Blood Urea Nitrogen 40 mg/dL (8-23); Calcium 9.6 mg/dL (8.6-10.4); Carbon Dioxide 30 mmol/L (22-30); Chloride 101 mmol/L (96-108); Globulin 2.3 gm/dL (2.2-3.7); Glucose 97 mg/dL (70-105); Phosphorous 5.3 mg/dL (2.5-4.5); Potassium 3.3 mmol/L (3.3-5.1); Sodium 142 mmol/L (133-145); Triglycerides 121 mg/dL (<150); Uric Acid 16.2 mg/dL (2.5-8.0)
[2025-06-10] MEDS: POTASSIUM CHLORIDE 20 MEQ TABLET PO ONE ×2 (20:28→20:30)
[2025-06-10] MEDS: ONDANSETRON 4 MG/2 ML VIAL IV PRN (20:48)
[2025-06-11] MEDS: LORazepam 2 MG/ML VIAL IV PRN (01:32)
[2025-06-11 07:48] VITALS: TEMP 99.7
[2025-06-11 08:22] VITALS: O2SAT 89
[2025-06-11] MEDS: LEVOFLOXACIN 750 MG TABLET PO SCH (09:49)
== END 2025-06-11 12:35 | disposition hospice, inpatient (51) ==
LOC: ED 06:56 → MEDSUR 06:56
PROVIDERS: ADMIT Student in an Organized Health Care Education/Training Program; ATTEND Student in an Organized Health Care Education/Training Program